=== PATIENT | male | born 1975 | race African-American/Black ===

== ENCOUNTER 2017-02-13 18:25 | Emergency (ER) | payer OTHER ==
[2017-02-13 15:36] VITALS: BP 115/73
[~2017-02-13 18:25] MED LIST changes: -ACETAMINOPHEN INTRAVENOUS 100 ML IV ONE; -BUPIVACAINE-EPI 0.25%-1:200000 50 ML VIAL. ONE; -CEFAZOLIN 2GM PREMIX 50 ML IV PRN; -DESFLURANE 61 TO 120 MINUTES IH ONE; -DEXAMETHASONE SOD PHOS 20 MG/5 ML VIAL. ONE; -ESMOLOL 100 MG/10 ML VIAL. IV ONE; -FENTANYL PF 100 MCG/2 ML VIAL. IV PRN; -FENTANYL PF 100 MCG/2 ML VIAL. ONE; -GLYCOPYRROLATE 1 MG/5 ML VIAL. ONE; -IV RINGERS,LACTATED 1000ML 1,000 ML IV SCH; -LIDOCAINE 1% 1 ML SYRINGE. ID PRN; -LIDOCAINE 2% 100 MG/5 ML SYRINGE. ONE; -MIDAZOLAM HCL/PF 2 MG/2 ML VIAL. ONE; -MORPHINE SULFATE 10 MG/ML VIAL. ONE; -MORPHINE SULFATE 2 MG/ML DISP.SYRIN. IV PRN; -NEOSTIGMINE METHYLSULFATE 5 MG/5 ML SYRINGE. ONE; -ONDANSETRON PF 4 MG/2 ML VIAL. IV PRN; -ONDANSETRON PF 4 MG/2 ML VIAL. ONE; -OXYCODONE/APAP 5/325 TABLET. PO PRN; -PROCHLORPERAZINE 10 MG/2 ML VIAL. IV PRN; -PROPOFOL 20 ML IV ONE; -ROCURONIUM 50 MG/5 ML VIAL. ONE
== END 2017-02-13 18:35 | disposition left against medical advice (07) ==
LOC: ER 18:25
DX: R33.9 Retention of urine, unspecified (principal); Z53.21 Procedure and treatment not carried out due to patient leaving prior to being seen by health care provider

== ENCOUNTER → 2017-02-13 | Day surgery (SDC) | payer OTHER ==
[~2017-02-13] VITALS: Ht 160 cm; Wt 70.8 kg
[~2017-02-13] MED LIST: ACETAMINOPHEN INTRAVENOUS 100 ML IV ONE; BUPIVACAINE-EPI 0.25%-1:200000 50 ML VIAL. ONE; CEFAZOLIN 2GM PREMIX 50 ML IV PRN; DESFLURANE 61 TO 120 MINUTES IH ONE; DEXAMETHASONE SOD PHOS 20 MG/5 ML VIAL. ONE; ESMOLOL 100 MG/10 ML VIAL. IV ONE; FENTANYL PF 100 MCG/2 ML VIAL. IV PRN; FENTANYL PF 100 MCG/2 ML VIAL. ONE; GLYCOPYRROLATE 1 MG/5 ML VIAL. ONE; IV RINGERS,LACTATED 1000ML 1,000 ML IV SCH; LIDOCAINE 1% 1 ML SYRINGE. ID PRN; LIDOCAINE 2% 100 MG/5 ML SYRINGE. ONE; MIDAZOLAM HCL/PF 2 MG/2 ML VIAL. ONE; MORPHINE SULFATE 10 MG/ML VIAL. ONE; MORPHINE SULFATE 2 MG/ML DISP.SYRIN. IV PRN; NEOSTIGMINE METHYLSULFATE 5 MG/5 ML SYRINGE. ONE; ONDANSETRON PF 4 MG/2 ML VIAL. IV PRN; ONDANSETRON PF 4 MG/2 ML VIAL. ONE; OXYC-323 PO; OXYCODONE/APAP 5/325 TABLET. PO PRN; PROCHLORPERAZINE 10 MG/2 ML VIAL. IV PRN; PROPOFOL 20 ML IV ONE; RISP37.5 IM; ROCURONIUM 50 MG/5 ML VIAL. ONE
--- NOTE | 2017-02-13 13:30 | PDOC ---
BRIEF OPERATIVE NOTE Date: Feb 13, 2017 Pre-Op Diagnosis Bilateral Inguinal Hernias Post-Op Diagnosis Same Procedure Performed Robotic assisted Bilateral Inguinal Hernia repair with Mesh Surgeon Same Anesthesia Type: General Blood Loss 10ml Specimens Obtained None Findings as above Complications None LUIS GANDARA MD Feb 13, 2017 13:30
--- NOTE | 2017-02-13 13:31 | DISCH ---
DISCHARGE INSTRUCTIONS Condition on Discharge Condition on Discharge: Stable Activity After Discharge Activity Instructions for Disc: Avoid exertion Other activity instructions: No lifting >20lbs for 2 weeks Diet after Discharge Diet after Discharge: Regular Wound Incision Care Other wound/incision instructi: May shower in 24 hours Contacting the after DC Call your doctor for: If your condition worsens Follow-Up Follow up with: Dr Gandara in 2 weeks LUIS GANDARA MD Feb 13, 2017 13:31
[2017-02-13] MEDS: FENTANYL PF 100 MCG/2 ML VIAL. IV PRN ×2 (14:06→14:32)
[2017-02-13] MEDS: HYDROMORPHONE 2 MG/ML VIAL. IV PRN ×2 (14:48→14:59)
[2017-02-13 15:36] VITALS: BP 115/73
--- NOTE | 2017-02-13 18:27 | OP ---
DATE OF SURGERY: 02/13/2017 PREOPERATIVE DIAGNOSIS: Bilateral inguinal hernia. POSTOPERATIVE DIAGNOSIS: Bilateral inguinal hernia. PROCEDURE: Robotic-assisted laparoscopic bilateral inguinal hernia repair with mesh. SURGEON: Alex Gandara MD. INDICATIONS: The patient is a 41-year-old gentleman who has complained of both groin bulges, more pain on the left than right. Procedure of robotic-assisted laparoscopic bilateral inguinal hernia repair was explained to the patient in detail. Risks and benefits were also discussed including bleeding, infection, injury to intra-abdominal contents, and possibly sustaining further open operations. Alternatives of this procedure were also discussed with the patient who seemed to understand and gave verbal and written consent to have the procedure performed. DESCRIPTION OF PROCEDURE: The patient was taken to the operating room and placed in the supine position. General anesthesia was initiated. Once the patient was asleep and intubated, he was then placed in low lithotomy. His abdomen was then prepped and draped in usual sterile fashion using ChloraPrep. An area just above the umbilicus was injected with 0.25% Marcaine with epinephrine. Incision was made with an 11-blade scalpel, and a Veress needle was placed within the abdomen. Pneumoperitoneum was achieved. Once this was completed, an 8.5-mm da Yamile port was placed. Once this was in place, 30-degree scope was placed, and the abdomen was inspected. It showed two inguinal hernias, one on the right and one on the left. He was placed in steep Trendelenburg. At this point, two 8-mm ports were then placed under direct visualization, one in the left mid abdomen and one in the right mid abdomen. At this point, the da Yamile robot was brought in and docked to all port sites. Surgeon then went to the robotic console. Using a grasper and EndoShears scissors, the peritoneum over the right groin was taken down with sharp dissection and blunt dissection reducing the hernia defect and the sac. At this point, a ProGrip mesh was then placed over the hernia defect. The peritoneum was then closed with a running V-Loc suture. Similarly, the left side peritoneum was taken down with sharp dissection. The hernia sac was dissected off the adherent tissues and reduced. Again, another piece of ProGrip mesh was placed over the hernia defect, and then the peritoneum was closed with a running V-Loc suture. The pneumoperitoneum was reduced. All ports were removed. The da Yamile robot was undocked. The incisions were closed with 4-0 subcuticular Monocryl. Mastisol, Steri-Strips, 4 x 4's, and Medipore tape were applied as dressings. The patient was awakened, extubated in the operating room, and taken to recovery in stable condition. All sponge and instrument counts were listed as correct. Estimated blood loss was 10 mL. ALEX GANDARA MD DR: GEOVANY/rosalia JOB#: [id number] / [id number] Dr. John Guillen
== END | disposition home or self-care (01) ==
LOC: SURG 09:37
PROVIDERS: ATTEND Surgery
DX: K40.20 Bilateral inguinal hernia, without obstruction or gangrene, not specified as recurrent (principal); F23 Brief psychotic disorder
CPT/HCPCS: 49650; C1781; J0131; J0690; J1100; J1170; J2250; J2270; J2405; J2704; J2710; J3010; J3490; J7120

== ENCOUNTER → 2021-03-22 | Outpatient (CLI) | payer MEDICAID ==
[~2021-03-22] MED LIST changes: -OXYC-323 PO; +OXYC1TAB15 PO
[2021-03-22] MEDS: IOHEXOL 240 MG/ML 50ML VIAL. PO ONE (08:00)
--- NOTE | 2021-03-22 09:17 | RAD ---
EXAM: Pelvis CT without contrast. HISTORY: Left inguinal hernia. TECHNIQUE: Computed tomographic images of the pelvis are obtained without contrast. *One or more of the following individualized dose reduction techniques were utilized for this examina tion: 1. Automated exposure control. 2. Adjustment of the mA and/or kV according to patient size. 3. Use of iterative reconstruction technique. COMPARISON: None. FINDINGS: There is a moderate to large fat-containing left inguinal hernia. The hernia defect measure s approximately 3.5 cm. There is stranding within the herniated fat and adjacent left lower quadrant fat suggesting a component of incarceration. There is also a small fat-containing right inguinal shawanda ia with the hernia defect measuring approximately 2.3 cm. There is no appendicitis. There is no bowel obstruction. There is distal colonic diverticulosis. Ther e is no diverticulitis. There are bilateral hydroceles. The bladder is unremarkable. The prostate is unremarkable. There is no lymphadenopathy. There is no suspicious osseous lesion. IMPRESSION: 1. Moderate to large fat-containing left inguinal hernia. There is stranding within the herniated fat and fat adjacent to the hernia defect suggesting a component of incarceration. No herniated loop of bowel is seen. 2. Small fat-containing right inguinal hernia. 3. Bilateral hydroceles. Electronically signed by: Maryse Li MD (03/22/2021 9:14 AM) [id number]
== END ==
LOC: CT 08:45
PROVIDERS: ATTEND Family Medicine
DX: K40.90 Unilateral inguinal hernia, without obstruction or gangrene, not specified as recurrent (principal); N43.3 Hydrocele, unspecified
CPT/HCPCS: 72192; Q9966

== ENCOUNTER 2021-05-03 08:28 | Day surgery (SDC) | payer OTHER, MEDICAID ==
[~2021-05-03] VITALS: Ht 162.6 cm; Wt 81.0 kg
[~2021-05-03 08:28] MED LIST changes: +BUPIVACAINE-EPI 0.25%-1:200000 MPF 30 ML VIAL. ONE; +CLON0.2T PO; +DOCU50CA9 PO; +HYDROmorphone 2 MG/ML VIAL IVP PRN; +IV RINGERS,LACTATED 1000ML 1,000 ML IV SCH; +LOSA100T14 PO; +MINERAL OIL for SURGERY 10 ML VIAL. MC ONE; +NAPR220C62 PO; +PROCHLORPERAZINE 10 MG/2 ML VIAL. IVP PRN; +fentaNYL PF VIAL 100 MCG/2 ML VIAL IVP PRN
[2021-05-03 08:59] VITALS: BP 144/94
[2021-05-03] MEDS ORDERED: ACETAMINOPHEN 500 MG TABLET PO ONE (09:00)
[2021-05-03] MEDS ORDERED: ROCURONIUM 50 MG/5 ML VIAL. ONE (09:05)
[2021-05-03] MEDS ORDERED: PROPOFOL 10 MG/ML (20ML) VIAL. IV ONE (09:05)
[2021-05-03] MEDS ORDERED: fentaNYL PF VIAL 100 MCG/2 ML VIAL ONE (09:06)
[2021-05-03] MEDS ORDERED: ONDANSETRON PF 4 MG/2 ML VIAL. ONE (09:06)
[2021-05-03] MEDS ORDERED: DEXAMETHASONE SOD PHOS 4 MG/ML VIAL ONE (09:06)
--- NOTE | 2021-05-03 11:27 | PDOC4 ---
Operative Note Operative Note Date: May 03, 2021 1123 Preoperative diagnosis: Recurrent left inguinal hernia Postoperative diagnosis: Same Procedure: Robotic assisted laparoscopic left inguinal hernia repair with mesh Surgeon: Andrew Specimen: None Dictation: Patient is a 45-year-old male who had bilateral inguinal hernia repairs several years ago is recurrent left inguinal hernia possible right. The procedure of recurrent inguinal hernia repairs with with mesh was explained to the patient detail risk benefits were also discussed including bleeding infection injury to intra-abdominal contents possible necessitating further open operations alternatives to this procedure also discussed with the patient who seemed to understand and gave both verbal and written consent to have the procedure performed. Patient was taken to the operating room placed in the s upine position general anesthesia was initiated once patient was sleeping intubated placed in low lithotomy position and his abdomen was prepped and draped usual sterile fashion using ChloraPrep. Area just above the umbilicus was injected with quarter percent Marcaine with epinephrine incision was made 11 blade scalpel and a varies needle was placed within the abdomen creating pneu moperitoneum once this was complete 8 mm da Yamile port was placed in the 8 mm da Yamile camera was placed within the abdomen which was inspected it was noted on the right side that the mesh was firmly intact there is no hernia defect. On the left side there was a large hernia defect lateral to the mesh which is a direct defect. 8 mm da Yamile port was placed in the right midabdomen and one in the left midabdomen the da Yamile was brought in and docked all port sites. Surgeon went to the robotic console using a grasper and Endo Cassandra scissors the peritoneum over the left inguinal area was taken down was quite difficult secondary to adhesions to the previous mesh and a very large hernia sac this was ultimately reduced. A Bard 3D max medium for the left side was placed over the hernia defect using 3-0 Vicryl several sutures were used to tack the mesh to the lip of the hernia defect as well as several single interrupted sutures along the superior border of the mesh to hold it in place. The peritoneum was then closed over the mesh with a running 2 OV lock absorbable suture. Once this was complete sutures removed from the abdomen the abdomen was suctioned dry of any fluid and blood. The da Yamile robot was undocked from all port sites pneumoperitoneum was reduced all ports were removed the port sites were all closed with running 4-0 subcuticular Monocryl Mastisol Steri-Strips and island dressings were applied. Patient was awakened and extubated operating room taken to recovery in stable condition all sponge instrument needle counts listed as correct estimated blood loss 20 mL. LUIS GANDARA MD May 03, 2021 11:27
[2021-05-03] MEDS ORDERED: OXYC1TAB15 PO (11:30)
--- NOTE | 2021-05-03 11:31 | DISCH ---
DISCHARGE INSTRUCTIONS Condition on Discharge Condition on Discharge: Stable Activity After Discharge Activity Instructions for Disc: Avoid exertion Other activity instructions: No lifting more than 20 pounds for 2 weeks Diet after Discharge Diet after Discharge: Regular Wound Incision Care Other wound/incision instructi: May shower in 24 hours Contacting the after DC Call your doctor for: If your condition worsens Follow-Up Follow up with: Dr. Gandara in 2 weeks LUIS GANDARA MD May 03, 2021 11:31
[2021-05-03] MEDS ORDERED: MORPHINE SULFATE 2 MG/ML INJ. ONE ×2 (11:57→12:22)
[2021-05-03] MEDS: MORPHINE SULFATE 2 MG/ML INJ. IVP PRN ×4 (11:59→12:45)
[2021-05-03] MEDS ORDERED: oxyCODONE/APAP 5/325 1 TAB TABLET PO ONE ×2 (12:00→12:30)
[2021-05-03 12:35] VITALS: BP 151/89
== END 2021-05-03 13:12 | disposition home or self-care (01) ==
LOC: SURG 08:28
PROVIDERS: ATTEND Surgery
DX: K40.91 Unilateral inguinal hernia, without obstruction or gangrene, recurrent (principal); I10 Essential (primary) hypertension; E78.00 Pure hypercholesterolemia, unspecified; Z79.899 Other long term (current) drug therapy; Z98.890 Other specified postprocedural states
CPT/HCPCS: 49651; A4364; A4930; A6219; C1781; J0690; J1100; J2270; J2405; J2704; J3010; J3490; S2900; A4657

== ENCOUNTER 2021-05-06 19:17 | Inpatient (IN) | payer OTHER, MEDICAID ==
[~2021-05-06] VITALS: Ht 162.6 cm; Wt 80.8 kg
[~2021-05-06 19:17] MED LIST changes: -BUPIVACAINE-EPI 0.25%-1:200000 MPF 30 ML VIAL. ONE; -HYDROmorphone 2 MG/ML VIAL IVP PRN; -IV RINGERS,LACTATED 1000ML 1,000 ML IV SCH; -MINERAL OIL for SURGERY 10 ML VIAL. MC ONE; -PROCHLORPERAZINE 10 MG/2 ML VIAL. IVP PRN; -fentaNYL PF VIAL 100 MCG/2 ML VIAL IVP PRN
--- NOTE | 2021-05-06 19:57 | ED.ADGEN ---
General Adult EDM: Chief Complaint: GROIN PAIN HPI: HPI: Patient is a 45 year old male coming in for postop increasing pain over the last 2 days. Patient states he had a inguinal mesh hernia repair 3 days ago. Patient states yesterday he had a hard bowel movement. Patient states his abdomen is been more distended and is having increasing pain. Also complaining of increased left testicular swelling since surgery. Patient has had a previous hernia repair in the past. Review of Systems: Review of Systems: All other systems within normal limits except for as noted in the HPI Current Medications: Current Medications Medications (Trade) Dose Ordered Sig/Toño Start Time Stop Time Status Last Admin Dose Admin Fentanyl Citrate (Fentanyl 2ml Vial) 75 mcg 1X ONCE 05/06/21 20:00 05/06/21 20:01 DC 05/06/21 20:50 75 MCG Info (CONTRAST GIVEN -- Rx MONITORING) 1 each PRN DAILY PRN 05/06/21 20:30 05/08/21 20:29 Iohexol (Omnipaque 300 Mg/ml) 75 ml 1X ONCE 05/06/21 20:30 05/06/21 20:31 DC 05/06/21 21:15 75 ML Ringer's Solution 1,000 ml @ 100 mls/hr 1X ONCE 05/06/21 20:30 05/07/21 06:29 05/06/21 20:52 100 MLS/HR Allergies: Allergies: Allergies Coded Allergies Type Severity Reaction Last Updated Verified No Known Drug Allergies 05/03/21 No Physical Exam: PE: Constitutional: Well developed, well nourished, no acute distress, non-toxic appearance. [] HENT: Normocephalic, atraumatic, bilateral external ears normal, nose normal. [] Eyes: PERRLA, conjunctiva normal, no discharge. [] Neck: No rigidity, supple, no stridor. [] Cardiovascular: Regular rate and rhythm, brisk cap refill [] Lungs & Thorax: Non labored symmetric respirations, no tachypnea or respiratory distress [] Abdomen: Soft, distended, generalized tenderness : Left testicular swelling and tenderness Skin: Warm, dry, no erythema, no rash. [] Back: Unremarkable Extremities: No deformities, range of motion grossly intact, no lower extremity edema [] Neurologic: Alert and oriented X 3, no focal deficits noted. [] Psychologic: Affect normal, judgement normal, mood normal. [] Current Patient Data: Labs: Laboratory Tests Test 05/06/21 19:20 05/06/21 20:41 Urine Collection Type Unknown Urine Color Straw Urine Clarity Clear Urine pH 7.0 (<5.0-8.0) Urine Specific Chandler <=1.005 (1.000-1.030) Urine Protein Negative mg/dL (NEG-TRACE) Urine Glucose (UA) Negative mg/dL (NEG) Urine Ketones (Stick) Negative mg/dL (NEG) Urine Blood Negative (NEG) Urine Nitrite Negative (NEG) Urine Bilirubin Negative (NEG) Urine Urobilinogen Dipstick 1.0 mg/dL (0.2 mg/dL) Urine Leukocyte Esterase Negative (NEG) Urine RBC 0 /HPF (0-2) Urine WBC 0 /HPF (0-4) Urine Squamous Epithelial Cells Occ /LPF Urine Bacteria 0 /HPF (0-FEW) White Blood Count 10.0 x10^3/uL (4.0-11.0) Red Blood Count 3.84 x10^6/uL (4.30-5.70) L Hemoglobin 11.5 g/dL (13.0-17.5) L Hematocrit 32.4 % (39.0-53.0) L Mean Corpuscular Volume 84 fL (79-100) Mean Corpuscular Hemoglobin 30 pg (25-35) Mean Corpuscular Hemoglobin Concent 36 g/dL (31-37) Red Cell Distribution Width 13.4 % (11.5-14.5) Platelet Count 145 x10^3/uL (140-400) Neutrophils (%) (Auto) 72 % (31-73) Lymphocytes (%) (Auto) 17 % (24-48) L Monocytes (%) (Auto) 11 % (0-9) H Eosinophils (%) (Auto) 0 % (0-3) Basophils (%) (Auto) 0 % (0-3) Neutrophils # (Auto) 7.2 x10^3/uL (1.8-7.7) Lymphocytes # (Auto) 1.7 x10^3/uL (1.0-4.8) Monocytes # (Auto) 1.1 x10^3/uL (0.0-1.1) Eosinophils # (Auto) 0.0 x10^3/uL (0.0-0.7) Basophils # (Auto) 0.0 x10^3/uL (0.0-0.2) Sodium Level 139 mmol/L (136-145) Potassium Level 3.9 mmol/L (3.5-5.1) Chloride Level 103 mmol/L (98-107) Carbon Dioxide Level 29 mmol/L (21-32) Anion Gap 7 (6-14) Blood Urea Nitrogen 11 mg/dL (8-26) Creatinine 1.1 mg/dL (0.7-1.3) Estimated GFR (Cockcroft-Gault) 87.2 BUN/Creatinine Ratio 10 (6-20) Glucose Level 119 mg/dL (70-99) H Lactic Acid Level 0.5 mmol/L (0.4-2.0) Calcium Level 9.1 mg/dL (8.5-10.1) Total Bilirubin 2.0 mg/dL (0.2-1.0) H Aspartate Amino Transferase (AST) 64 U/L (15-37) H Alanine Aminotransferase (ALT) 104 U/L (16-63) H Alkaline Phosphatase 142 U/L (46-116) H Total Protein 7.1 g/dL (6.4-8.2) Albumin 3.5 g/dL (3.4-5.0) Albumin/Globulin Ratio 1.0 (1.0-1.7) Laboratory Tests 05/06/21 20:41 Laboratory Tests 05/06/21 20:41 Vital Signs: Vital Signs Date Time Temp Pulse Resp B/P (MAP) Pulse Ox O2 Delivery O2 Flow Rate FiO2 05/06/21 20:50 26 98 Room Air 05/06/21 19:30 100.8 111 169/100 (109) 100.8 EKG: EKG: [] Heart Score: C/O Chest Pain: No Risk Factors: Risk Factors: DM, Current or recent (<one month) smoker, HTN, HLP, family history of CAD, obesity. Risk Scores: Score 0 - 3: 2.5% MACE over next 6 weeks - Discharge Home Score 4 - 6: 20.3% MACE over next 6 weeks - Admit for Clinical Observation Score 7 - 10: 72.7% MACE over next 6 weeks - Early Invasive Strategies Radiology/Procedures: Radiology/Procedures: [facility] [address] [place] [address] IMAGING REPORT Signed PATIENT: JESSICA JEFFERS ACCOUNT: [id number] : 1975 LOCATION: ER AGE: 45 SEX: M EXAM STATUS: REG ER ORD. PHYSICIAN: DEIDRE VEGA MD REASON: post op distention and testicle swelling, scan through testicles PROCEDURE: CT ABD PELV W/ IV CONTRST ONLY Exam: CT of abdomen and pelvis with contrast INDICATION: Postop distention and testicular swelling TECHNIQUE: Sequential axial images through the abdomen and pelvis obtained following the administration of 75 mL of Omni 300 IV contrast. Sagittal and coronal reformatted images were reconstructed from the axial data and reviewed. Exposure: One or more of the following in the visualized dose reduction techniques were utilized for this examination: 1. Automated exposure control 2. Adjustment of the MA and/or KV according to patient size 3. Use of iterative of reconstructive technique Comparisons: Pelvis CT 03/22/2021 FINDINGS: Heart size is normal. No pericardial effusion. Visualized lung bases are clear. No pleural effusion. Liver, spleen, pancreas, gallbladder and adrenals are unremarkable. No perinephric inflammation or hydronephrosis. No renal or ureteral calculi are identified. Bladder is decompressed not well evaluated. Prostate is not enlarged. Fluid and hemorrhagic products noted along the left pelvic sidewall extending into the left inguinal canal down into the scrotal sac with bilateral hydroceles. Previously seen large fat inguinal hernia is not seen. Small amount of free air is noted in the upper midline abdomen. Large and small bowel are unremarkable. Appendix is normal. No free intra-abdominal air or fluid. No obstruction. Abdominal aorta has a normal course and caliber. Abdominal vasculature is patent. No enlarged intra-abdominal lymph nodes are identified. IMPRESSION: 1. Hemorrhagic products seen extending from the left pelvic sidewall down to the inguinal canal into the scrotum with large bilateral hydroceles. 2. Small amount of free air is noted in the abdomen. Correlate with recency of surgery. Electronically signed by: Jayson De Dios MD (05/06/2021 9:56 PM) [facility] DICTATED and SIGNED BY: JAYSON DE DIOS MD DATE: 05/06/21 [id number] [] Course & Med Decision Making: Course & Med Decision Making Pertinent Labs and Imaging studies reviewed. (See chart for details) Discussed Dr. Coronado will admit to the hospitalist, requesting IV hydration, pain control, and abdominal binder. [] Dragon Disclaimer: Dragon Disclaimer: This electronic medical record was generated, in whole or in part, using a voice recognition dictation system. Departure Departure Impression: Primary Impression: Post-op bleeding Disposition: ADMITTED INPATIENT Admitting Physician: DOUG Condition: STABLE Referrals: Judy DOYLE MD (PCP) DEIDRE VEGA MD May 06, 2021 19:57
[2021-05-06] MEDS ORDERED: fentaNYL PF VIAL 100 MCG/2 ML VIAL IVP ONE (20:00)
[2021-05-06 20:01] LABS: BILIRUBIN,URINE NEGATIVE (NEG); CLARITY,URINE CLEAR; NITRITE,URINE NEGATIVE (NEG); PROTEIN,URINE NEGATIVE (NEG-TRACE)
[2021-05-06 20:08] LABS: COLOR,URINE STRAW
[2021-05-06 20:10] LABS: BACTERIA,URINE 0 /HPF (0-FEW); RBC,URINE 0 /HPF (0-2); WBC,URINE 0 /HPF (0-4)
[2021-05-06] MEDS ORDERED: IV RINGERS,LACTATED 1000ML 1,000 ML IV ONE (20:30)
[2021-05-06] MEDS ORDERED: CONTRAST GIVEN. MC PRN (20:30)
[2021-05-06] MEDS ORDERED: IOHEXOL 300 MG/ML 100ML VIAL. IV ONE (20:30)
[2021-05-06 20:53] LABS: BASO % 0 % (0-3); EOS % 0 % (0-3); HEMATOCRIT 32.4 % (39.0-53.0); HEMOGLOBIN 11.5 g/dL (13.0-17.5); LYMPH # 1.7 x10^3/uL (1.0-4.8); LYMPH % 17 % (24-48); MEAN CORPUSCULAR HEMOGLOBIN 30 pg (25-35); MEAN CORPUSCULAR HGB CONC 36 g/dL (31-37); MEAN CORPUSCULAR VOLUME 84 fL (79-100); MONO # 1.1 x10^3/uL (0.0-1.1); MONO % 11 % (0-9); NEUT # 7.2 x10^3/uL (1.8-7.7); NEUT % 72 % (31-73); PLATELET COUNT 145 x10^3/uL (140-400); RED BLOOD COUNT 3.84 x10^6/uL (4.30-5.70); RED CELL DISTRIBUTION WIDTH 13.4 % (11.5-14.5)
[2021-05-06 21:00] LABS: CALCIUM 9.1 mg/dL (8.5-10.1); CREATININE 1.1 mg/dL (0.7-1.3); GFR 87.2; POTASSIUM 3.9 mmol/L (3.5-5.1)
[2021-05-06 21:06] LABS: ALBUMIN 3.5 g/dL (3.4-5.0); TOTAL PROTEIN 7.1 g/dL (6.4-8.2)
--- NOTE | 2021-05-06 21:59 | RAD ---
Exam: CT of abdomen and pelvis with contrast INDICATION: Postop distention and testicular swelling TECHNIQUE: Sequential axial images through the abdomen and pelvis obtained following the administrati on of 75 mL of Omni 300 IV contrast. Sagittal and coronal reformatted images were reconstructed from the axial data and reviewed. Exposure: One or more of the following in the visualized dose reduction techniques were utilized for this examination: 1. Automated exposure control 2. Adjustment of the MA and/or KV according to patient size 3. Use of iterative of reconstructive technique Comparisons: Pelvis CT 03/22/2021 FINDINGS: Heart size is normal. No pericardial effusion. Visualized lung bases are clear. No pleural effusion. Liver, spleen, pancreas, gallbladder and adrenals are unremarkable. No perinephric inflammation or hydronephrosis. No renal or ureteral calculi are identified. Bladder is decompressed not well evaluated. Prostate is not enlarged. Fluid and hemorrhagic products noted along the left pelvic sidewall extending into the left inguinal canal down into the scrotal sac with bilateral hydroceles. Previously seen large fat inguinal hernia is not seen. Small amount of free air is noted in the upper midline abdomen. Large and small bowel are unremarkabl e. Appendix is normal. No free intra-abdominal air or fluid. No obstruction. Abdominal aorta has a normal course and caliber. Abdominal vasculature is patent. No enlarged intra-abdominal lymph nodes are identified. IMPRESSION: 1. Hemorrhagic products seen extending from the left pelvic sidewall down to the inguinal canal into the scrotum with large bilateral hydroceles. 2. Small amount of free air is noted in the abdomen. Correlate with recency of surgery. Electronically signed by: Jayson Newell MD (05/06/2021 9:56 PM) [facility]
[2021-05-06] MEDS ORDERED: ONDANSETRON PF 4 MG/2 ML VIAL. IV PRN (22:30)
[2021-05-06] MEDS ORDERED: MORPHINE SULFATE 4 MG/ML INJ. IV PRN (22:30)
[2021-05-06] MEDS: ACETAMINOPHEN 325 MG TABLET. PO PRN (23:16)
[2021-05-06 23:53] VITALS: BP 153/103
[2021-05-07] MEDS ORDERED: IOHEXOL 300 MG/ML 100ML VIAL. ONE (00:41)
[2021-05-07] MEDS ORDERED: CLON1PAT6 TD (00:53)
[2021-05-07 02:13] VITALS: BP 142/101
[2021-05-07 04:45] LABS: BASO % 0 % (0-3); EOS % 0 % (0-3); HEMATOCRIT 33.6 % (39.0-53.0); HEMOGLOBIN 11.8 g/dL (13.0-17.5); LYMPH # 2.3 x10^3/uL (1.0-4.8); LYMPH % 24 % (24-48); MEAN CORPUSCULAR HEMOGLOBIN 30 pg (25-35); MEAN CORPUSCULAR HGB CONC 35 g/dL (31-37); MEAN CORPUSCULAR VOLUME 85 fL (79-100); MONO # 1.1 x10^3/uL (0.0-1.1); MONO % 12 % (0-9); NEUT # 6.3 x10^3/uL (1.8-7.7); NEUT % 64 % (31-73); PLATELET COUNT 139 x10^3/uL (140-400); RED BLOOD COUNT 3.95 x10^6/uL (4.30-5.70); RED CELL DISTRIBUTION WIDTH 13.2 % (11.5-14.5); WHITE BLOOD COUNT 9.8 x10^3/uL (4.0-11.0)
[2021-05-07 05:12] LABS: ALBUMIN 3.4 g/dL (3.4-5.0); ALBUMIN/GLOBULIN RATIO 0.9 (1.0-1.7); CALCIUM 9.1 mg/dL (8.5-10.1); GFR 97.3; POTASSIUM 3.6 mmol/L (3.5-5.1); TOTAL PROTEIN 7.2 g/dL (6.4-8.2)
[2021-05-07 06:11] VITALS: BP 154/104
--- NOTE | 2021-05-07 08:44 | PDOC1 ---
History and Physical Date of Admission Date of Admission DATE: 05/07/21 TIME: 08:44 Identification/Chief Complaint Chief Complaint PAIN AFTER RECENT SURGERY History of Present Illness History of Present Illness HPI states his abdomen is been more distended and is having increasing pain.//complaining of increased left testicular swelling since surgery. Patient has had a previous hernia repair in the past. 45-year-old male who had bilateral inguinal hernia repairs several years ago is recurrent left inguinal hernia possible right suspect hematoma secondary extensive dissection, should be self limiting. encouraged elevation. Past Medical History Past Medical History hernia repair Family History Family History: High Cholestrol, Hypertension Social History Smoke: <1 pack per day Drugs: None Current Problem List Problem List Problems Medical Problems: (1) Post-op pain Status: Acute Current Medications Current Medications Current Medications Fentanyl Citrate (Fentanyl 2ml Vial) 75 mcg 1X ONCE IVP Last administered on 05/06/21at 20:50; Start 05/06/21 at 20:00; Stop 05/06/21 at 20:01; Status DC Ringer's Solution 1,000 ml @ 100 mls/hr 1X ONCE IV Last administered on 05/06/21at 20:52; Start 05/06/21 at 20:30; Stop 05/07/21 at 06:29; Status DC Iohexol (Omnipaque 300 Mg/ml) 75 ml 1X ONCE IV Last administered on 05/06/21at 21:15; Start 05/06/21 at 20:30; Stop 05/06/21 at 20:31; Status DC Info (CONTRAST GIVEN -- Rx MONITORING) 1 each PRN DAILY PRN MC SEE COMMENTS; Start 05/06/21 at 20:30; Stop 05/08/21 at 20:29 Ondansetron HCl (Zofran) 4 mg PRN Q8HRS PRN IV NAUSEA/VOMITING; Start 05/06/21 at 22:30; Stop 05/07/21 at 22:29 Morphine Sulfate (Morphine Sulfate) 4 mg PRN Q2HR PRN IV PAIN; Start 05/06/21 at 22:30; Stop 05/07/21 at 22:29 Acetaminophen (Tylenol) 650 mg PRN Q4HRS PRN PO FEVER > 100.3'F Last administered on 05/06/21at 23:16; Start 05/06/21 at 22:30; Stop 05/07/21 at 22:29 Iohexol (Omnipaque 300 Mg/ml) 100 ml STK-MED ONCE .ROUTE ; Start 05/07/21 at 00:41; Stop 05/07/21 at 00:42; Status DC Active Scripts Active Percocet 5-325 Mg Tablet (Oxycodone/Acetaminophen) 1 Each Tablet 1 Tab PO Q6HRS PRN MDD 4 Tablet(s) 5 Days Reported Clonidine Tts-2 (Clonidine) 1 Each Patch.tdwk 1 Patch TD WEEKLY Losartan Potassium 100 Mg Tablet 100 Mg PO DAILY Stool Softener (Docusate Sodium) 50 Mg Capsule 1 Cap PO PRN DAILY PRN Naproxen Sodium 220 Mg Capsule 220 Mg PO PRN BID PRN Risperdal Consta (Risperidone Microspheres) 37.5 Mg/2 Ml Disp.syrin 1 Syr IM UD Allergies Allergies: Coded Allergies: No Known Drug Allergies (Unverified , 05/03/21) ROS General: No: Chills, Night Sweats, Fatigue, Malaise, Appetite, Other PSYCHOLOGICAL ROS: No: Anxiety, Behavioral Disorder, Concentration difficultie, Decreased libido, Depression, Disorientation, Hallucinations, Hostility, Irritablity, Memory difficulties, Mood Swings, Obsessive thoughts, Physical abuse, Sexual abuse, Sleep disturbances, Suicidal ideation, Other Eyes: No Blurry vision, No Decreased vision, No Double vision, No Dry eyes, No Excessive tearing, No Eye Pain, No Itchy Eyes, No Loss of vision, No Photophobia, No Scotomata, No Uses contacts, No Uses glasses, No Other HEENT: No: Heacaches, Visual Changes, Hearing change, Nasal congestion, Nasal discharge, Oral lesions, Sinus pain, Sore Throat, Epistaxis, Sneezing, Snoring, Tinnitus, Vertigo, Vocal changes, Other ALLERGY AND IMMUNOLOGY: No: Hives, Insect Bite Sensitivity, Itchy/Watery Eyes, Nasal Congestion, Post Nasal Drip, Seasonal Allergies, Other Hematological and Lymphatic: No: Bleeding Problems, Blood Clots, Blood Transfusions, Brusing, Night Sweats, Pallor, Swollen Lymph Nodes, Other ENDOCRINE: No: Breast Changes, Galactorrhea, Hair Pattern Changes, Hot Flashes, Malaise/lethargy, Mood Swings, Palpitations, Polydipsia/polyuria, Skin Changes, Temperature Intolerance, Unexpected Weight Changes, Other Breast: No New/Changing Breast Lumps, No Nipple changes, No Nipple discharge, No Other Respiratory: No: Cough, Hemoptysis, Orthopnea, Pleuritic Pain, Shortness of breath, SOB with excertion, Sputum Changes, Stridor, Tachypnea, Wheezing, Other Cardiovascular: No Chest Pain, No Palpitations, No Orthopnea, No Paroxysmal Noc. Dyspnea, No Edema, No Lt Headedness, No Other Gastrointestinal: Yes Abdominal Pain; No Nausea, No Vomiting, No Diarrhea, No Constipation, No Melena, No Hematochezia, No Other Genitourinary: No Dysuria, No Frequency, No Incontinence, No Hematuria, No Retention, No Discharge, No Urgency, No Pain, No Flank Pain, No Other, No , No , No , No , No , No , No Musculoskeletal: Yes Gait Disturbance; No Joint Pain, No Joint Stiffness, No Joint Swelling, No Muscle Pain, No Muscular Weakness, No Pain In:, No Swelling In:, No Other Neurological: No Behavorial Changes, No Bowel/Bladder ControlChng, No Confusion, No Dizziness, No Gait Disturbance, No Headaches, No Impaired Coord/balance, No Memory Loss, No Numbness/Tingling, No Seizures, No Speech Problems, No Tremors, No Visual Changes, No Weakness, No Other Skin: Yes Dry Skin; No Eczema, No Hair Changes, No Lumps, No Mole Changes, No Mottling, No Nail Changes, No Pruritus, No Rash, No Skin Lesion Changes, No Other, No Acne Physical Exam Physical Exam : Left testicular swelling and tenderness Skin: Warm, dry, no erythema, no rash. [] Back: Unremarkable Extremities: No deformities, range of motion grossly intact, no lower extremity edema [] Neurologic: Alert and oriented X 3, no focal deficits noted. [] Psychologic: Affect normal, judgement normal, mood normal. [] General: Alert, Oriented X3, Cooperative, No acute distress HEENT: Atraumatic Lungs: Clear to auscultation Heart: RRR, no thrills, no rubs, no gallops, no jug vein distention Breasts: Not examined Abdomen: Normal bowel sounds, Soft Rectal Exam: not examined Extremities: No cyanosis Neuro: Normal speech, Strength at 5/5 X4 ext, Sensation intact, Cranial nerves 3-12 NL Psych/Mental Status: Mental status NL, Mood NL Vitals Vitals Vital Signs Date Time Temp Pulse Resp B/P (MAP) Pulse Ox O2 Delivery O2 Flow Rate FiO2 05/07/21 06:11 99.4 102 18 154/104 (121) 96 Room Air 99.4 Labs Labs Laboratory Tests Test 05/06/21 19:20 05/06/21 20:41 05/07/21 03:20 Urine Collection Type Unknown Urine Color Straw Urine Clarity Clear Urine pH 7.0 (<5.0-8.0) Urine Specific [place] <=1.005 (1.000-1.030) Urine Protein Negative mg/dL (NEG-TRACE) Urine Glucose (UA) Negative mg/dL (NEG) Urine Ketones (Stick) Negative mg/dL (NEG) Urine Blood Negative (NEG) Urine Nitrite Negative (NEG) Urine Bilirubin Negative (NEG) Urine Urobilinogen Dipstick 1.0 mg/dL (0.2 mg/dL) Urine Leukocyte Esterase Negative (NEG) Urine RBC 0 /HPF (0-2) Urine WBC 0 /HPF (0-4) Urine Squamous Epithelial Cells Occ /LPF Urine Bacteria 0 /HPF (0-FEW) White Blood Count 10.0 x10^3/uL (4.0-11.0) 9.8 x10^3/uL (4.0-11.0) Red Blood Count 3.84 x10^6/uL (4.30-5.70) 3.95 x10^6/uL (4.30-5.70) Hemoglobin 11.5 g/dL (13.0-17.5) 11.8 g/dL (13.0-17.5) Hematocrit 32.4 % (39.0-53.0) 33.6 % (39.0-53.0) Mean Corpuscular Volume 84 fL (79-100) 85 fL (79-100) Mean Corpuscular Hemoglobin 30 pg (25-35) 30 pg (25-35) Mean Corpuscular Hemoglobin Concent 36 g/dL (31-37) 35 g/dL (31-37) Red Cell Distribution Width 13.4 % (11.5-14.5) 13.2 % (11.5-14.5) Platelet Count 145 x10^3/uL (140-400) 139 x10^3/uL (140-400) Neutrophils (%) (Auto) 72 % (31-73) 64 % (31-73) Lymphocytes (%) (Auto) 17 % (24-48) 24 % (24-48) Monocytes (%) (Auto) 11 % (0-9) 12 % (0-9) Eosinophils (%) (Auto) 0 % (0-3) 0 % (0-3) Basophils (%) (Auto) 0 % (0-3) 0 % (0-3) Neutrophils # (Auto) 7.2 x10^3/uL (1.8-7.7) 6.3 x10^3/uL (1.8-7.7) Lymphocytes # (Auto) 1.7 x10^3/uL (1.0-4.8) 2.3 x10^3/uL (1.0-4.8) Monocytes # (Auto) 1.1 x10^3/uL (0.0-1.1) 1.1 x10^3/uL (0.0-1.1) Eosinophils # (Auto) 0.0 x10^3/uL (0.0-0.7) 0.0 x10^3/uL (0.0-0.7) Basophils # (Auto) 0.0 x10^3/uL (0.0-0.2) 0.0 x10^3/uL (0.0-0.2) Sodium Level 139 mmol/L (136-145) 141 mmol/L (136-145) Potassium Level 3.9 mmol/L (3.5-5.1) 3.6 mmol/L (3.5-5.1) Chloride Level 103 mmol/L (98-107) 104 mmol/L (98-107) Carbon Dioxide Level 29 mmol/L (21-32) 29 mmol/L (21-32) Anion Gap 7 (6-14) 8 (6-14) Blood Urea Nitrogen 11 mg/dL (8-26) 9 mg/dL (8-26) Creatinine 1.1 mg/dL (0.7-1.3) 1.0 mg/dL (0.7-1.3) Estimated GFR (Cockcroft-Gault) 87.2 97.3 BUN/Creatinine Ratio 10 (6-20) 9 (6-20) Glucose Level 119 mg/dL (70-99) 114 mg/dL (70-99) Lactic Acid Level 0.5 mmol/L (0.4-2.0) Calcium Level 9.1 mg/dL (8.5-10.1) 9.1 mg/dL (8.5-10.1) Total Bilirubin 2.0 mg/dL (0.2-1.0) 3.0 mg/dL (0.2-1.0) Aspartate Amino Transf (AST/SGOT) 64 U/L (15-37) 62 U/L (15-37) Alanine Aminotransferase (ALT/SGPT) 104 U/L (16-63) 108 U/L (16-63) Alkaline Phosphatase 142 U/L (46-116) 153 U/L (46-116) Total Protein 7.1 g/dL (6.4-8.2) 7.2 g/dL (6.4-8.2) Albumin 3.5 g/dL (3.4-5.0) 3.4 g/dL (3.4-5.0) Albumin/Globulin Ratio 1.0 (1.0-1.7) 0.9 (1.0-1.7) Laboratory Tests Test 05/06/21 19:20 05/06/21 20:41 05/07/21 03:20 Urine Collection Type Unknown Urine Color Straw Urine Clarity Clear Urine pH 7.0 (<5.0-8.0) Urine Specific [place] <=1.005 (1.000-1.030) Urine Protein Negative mg/dL (NEG-TRACE) Urine Glucose (UA) Negative mg/dL (NEG) Urine Ketones (Stick) Negative mg/dL (NEG) Urine Blood Negative (NEG) Urine Nitrite Negative (NEG) Urine Bilirubin Negative (NEG) Urine Urobilinogen Dipstick 1.0 mg/dL (0.2 mg/dL) Urine Leukocyte Esterase Negative (NEG) Urine RBC 0 /HPF (0-2) Urine WBC 0 /HPF (0-4) Urine Squamous Epithelial Cells Occ /LPF Urine Bacteria 0 /HPF (0-FEW) White Blood Count 10.0 x10^3/uL (4.0-11.0) 9.8 x10^3/uL (4.0-11.0) Red Blood Count 3.84 x10^6/uL (4.30-5.70) 3.95 x10^6/uL (4.30-5.70) Hemoglobin 11.5 g/dL (13.0-17.5) 11.8 g/dL (13.0-17.5) Hematocrit 32.4 % (39.0-53.0) 33.6 % (39.0-53.0) Mean Corpuscular Volume 84 fL (79-100) 85 fL (79-100) Mean Corpuscular Hemoglobin 30 pg (25-35) 30 pg (25-35) Mean Corpuscular Hemoglobin Concent 36 g/dL (31-37) 35 g/dL (31-37) Red Cell Distribution Width 13.4 % (11.5-14.5) 13.2 % (11.5-14.5) Platelet Count 145 x10^3/uL (140-400) 139 x10^3/uL (140-400) Neutrophils (%) (Auto) 72 % (31-73) 64 % (31-73) Lymphocytes (%) (Auto) 17 % (24-48) 24 % (24-48) Monocytes (%) (Auto) 11 % (0-9) 12 % (0-9) Eosinophils (%) (Auto) 0 % (0-3) 0 % (0-3) Basophils (%) (Auto) 0 % (0-3) 0 % (0-3) Neutrophils # (Auto) 7.2 x10^3/uL (1.8-7.7) 6.3 x10^3/uL (1.8-7.7) Lymphocytes # (Auto) 1.7 x10^3/uL (1.0-4.8) 2.3 x10^3/uL (1.0-4.8) Monocytes # (Auto) 1.1 x10^3/uL (0.0-1.1) 1.1 x10^3/uL (0.0-1.1) Eosinophils # (Auto) 0.0 x10^3/uL (0.0-0.7) 0.0 x10^3/uL (0.0-0.7) Basophils # (Auto) 0.0 x10^3/uL (0.0-0.2) 0.0 x10^3/uL (0.0-0.2) Sodium Level 139 mmol/L (136-145) 141 mmol/L (136-145) Potassium Level 3.9 mmol/L (3.5-5.1) 3.6 mmol/L (3.5-5.1) Chloride Level 103 mmol/L (98-107) 104 mmol/L (98-107) Carbon Dioxide Level 29 mmol/L (21-32) 29 mmol/L (21-32) Anion Gap 7 (6-14) 8 (6-14) Blood Urea Nitrogen 11 mg/dL (8-26) 9 mg/dL (8-26) Creatinine 1.1 mg/dL (0.7-1.3) 1.0 mg/dL (0.7-1.3) Estimated GFR (Cockcroft-Gault) 87.2 97.3 BUN/Creatinine Ratio 10 (6-20) 9 (6-20) Glucose Level 119 mg/dL (70-99) 114 mg/dL (70-99) Lactic Acid Level 0.5 mmol/L (0.4-2.0) Calcium Level 9.1 mg/dL (8.5-10.1) 9.1 mg/dL (8.5-10.1) Total Bilirubin 2.0 mg/dL (0.2-1.0) 3.0 mg/dL (0.2-1.0) Aspartate Amino Transf (AST/SGOT) 64 U/L (15-37) 62 U/L (15-37) Alanine Aminotransferase (ALT/SGPT) 104 U/L (16-63) 108 U/L (16-63) Alkaline Phosphatase 142 U/L (46-116) 153 U/L (46-116) Total Protein 7.1 g/dL (6.4-8.2) 7.2 g/dL (6.4-8.2) Albumin 3.5 g/dL (3.4-5.0) 3.4 g/dL (3.4-5.0) Albumin/Globulin Ratio 1.0 (1.0-1.7) 0.9 (1.0-1.7) Images Images BRIEF OPERATIVE NOTE Date: Feb 13, 2017 Pre-Op Diagnosis Bilateral Inguinal Hernias Post-Op Diagnosis Same Procedure Performed Robotic assisted Bilateral Inguinal Hernia repair with Mesh Surgeon Same Anesthesia Type: General Blood Loss 10ml Specimens Obtained None Findings as above Complications None Operative Note Operative Note Date: May 03, 2021 1123 Preoperative diagnosis: Recurrent left inguinal hernia Postoperative diagnosis: Same Procedure: Robotic assisted laparoscopic left inguinal hernia repair with mesh Surgeon: Andrew Specimen: None Dictation: Patient is a 45-year-old male who had bilateral inguinal hernia repairs several years ago is recurrent left inguinal hernia possible right. The procedure of recurrent inguinal hernia repairs with with mesh was explained to the patient detail risk benefits were also discussed including bleeding infection injury to intra-abdominal contents possible necessitating further open operations alternatives to this procedure also discussed with the patient who seemed to understand and gave both verbal and written consent to have the procedure performed. Patient was taken to the operating room placed in the supine position general anesthesia was initiated once patient was sleeping intubated placed in low lithotomy position and his abdomen was prepped and d raped usual sterile fashion using ChloraPrep. Area just above the umbilicus was injected with quarter percent Marcaine with epinephrine incision was made 11 blade scalpel and a varies needle was placed within the abdomen creating pneumoperitoneum once this was complete 8 mm da Yamile port was placed in the 8 mm da Yamile camera was placed within the abdomen which was inspected it was noted on the right side that the mesh was firmly intact there is no hernia defect. On the left side there was a large hernia defect lateral to the mesh which is a direct defect. 8 mm da Yamile port was placed in the right midabdomen and one in the left midabdomen the da Yamile was brought in and docked all port sites. Surgeon went to the robotic console using a grasper and Endo Cassandra scissors the peritoneum over the left inguinal area was taken down was quite difficult secondary to adhesions to the previous mesh and a very large hernia sac this was ultimately reduced. A Bard 3D max medium for the left side was placed over the hernia defect using 3-0 Vicryl several sutures were used to tack the mesh to the lip of the hernia defect as well as several single interrupted sutures along the superior border of the mesh to hold it in place. The peritoneum was then closed over the mesh with a running 2 OV lock absorbable suture. Once this was complete sutures removed from the abdomen the abdomen was suctioned dry of any fluid and blood. The da Yamile robot was undocked from all port sites pneumoperitoneum was reduced all ports were removed the port sites were all closed with running 4-0 subcuticular Monocryl Mastisol Steri-Strips and island dressings were applied. Patient was awakened and extubated operating room taken to recovery in stable condition all sponge instrument needle counts listed as correct estimated blood loss 20 mL. LUIS GANDARA MD May 03, 2021 11:27 SIGNED BY: LUIS GANDARA MD PATIENT: GEORGINA JEFFERSCT N ACCOUNT: [id number] : 1975 LOCATION: ER AGE: 45 SEX: M EXAM STATUS: REG ER ORD. PHYSICIAN: DEIDRE VEGA MD REASON: post op distention and testicle swelling, scan through testicles PROCEDURE: CT ABD PELV W/ IV CONTRST ONLY Exam: CT of abdomen and pelvis with contrast INDICATION: Postop distention and testicular swelling TECHNIQUE: Sequential axial images through the abdomen and pelvis obtained following the administration of 75 mL of Omni 300 IV contrast. Sagittal and coronal reformatted images were reconstructed from the axial data and reviewed. Exposure: One or more of the following in the visualized dose reduction techniques were utilized for this examination: 1. Automated exposure control 2. Adjustment of the MA and/or KV according to patient size 3. Use of iterative of reconstructive technique Comparisons: Pelvis CT 03/22/2021 FINDINGS: Heart size is normal. No pericardial effusion. Visualized lung bases are clear. No pleural effusion. Liver, spleen, pancreas, gallbladder and adrenals are unremarkable. No perinephric inflammation or hydronephrosis. No renal or ureteral calculi are identified. Bladder is decompressed not well evaluated. Prostate is not enlarged. Fluid and hemorrhagic products noted along the left pelvic sidewall extending into the left inguinal canal down into the scrotal sac with bilateral hydroceles. Previously seen large fat inguinal hernia is not seen. Small amount of free air is noted in the upper midline abdomen. Large and small bowel are unremarkable. Appendix is normal. No free intra-abdominal air or fluid. No obstruction. Abdominal aorta has a normal course and caliber. Abdominal vasculature is patent. No enlarged intra-abdominal lymph nodes are identified. IMPRESSION: 1. Hemorrhagic products seen extending from the left pelvic sidewall down to the inguinal canal into the scrotum with large bilateral hydroceles. 2. Small amount of free air is noted in the abdomen. Correlate with recency of surgery. Electronically signed by: Jayson De Dios MD (05/06/2021 9:56 PM) [facility] DICTATED and SIGNED BY: JAYSON DE DIOS MD DATE: 05/06/21 [id number] VTE Prophylaxis Ordered VTE Prophylaxis Devices: Contraindicated VTE Pharmacological Prophylaxi: Contraindicated Assessment/Plan Assessment/Plan Assessment/Plan POD # 3 Robotic assisted laparoscopic left inguinal hernia repair with mesh seroma, hematoma--expected obesity ADMIT Consult surgery heat, elevation pain control dvt prophylaxis, SCD'D NO LOVENOX home meds COLACE Justifications for Admission Other Justification LUIS MARTIN MD May 07, 2021 08:44
[2021-05-07 11:18] VITALS: BP 149/99
--- NOTE | 2021-05-07 12:38 | PDOC2 ---
FELIPE ARELLANO CODING COORDINATOR 05/07/21 1238: CONSULT Date of Consult Date of Consult DATE: 05/07/21 TIME: 12:33 Reason for Consult Reason for Consult: recent surgery Referring Physician Referring Physician: ER Identification/Chief Complaint Chief Complaint pain, swelling groin Source Source: Chart review, Patient History of Present Illness Reason for Visit: 05/03 underwent Robotic assisted laparoscopic left inguinal hernia repair with mesh--increasing swelling and pain to groin, testicle Family present concerned, this is second repair, why having troubles Past Medical History Cardiovascular: HTN, Hyperlipidemia Psych: Schizophrenia Past Surgical History Past Surgical History: Hernia Repair Family History Family History: Other (noncontributory to current illness ) Social History No ALCOHOL: none Drugs: None Lives: with Family Current Problem List Problem List Problems Medical Problems: (1) Post-op pain Status: Acute Current Medications Current Medications Current Medications Fentanyl Citrate (Fentanyl 2ml Vial) 75 mcg 1X ONCE IVP Last administered on 05/06/21at 20:50; Start 05/06/21 at 20:00; Stop 05/06/21 at 20:01; Status DC Ringer's Solution 1,000 ml @ 100 mls/hr 1X ONCE IV Last administered on 05/06/21at 20:52; Start 05/06/21 at 20:30; Stop 05/07/21 at 06:29; Status DC Iohexol (Omnipaque 300 Mg/ml) 75 ml 1X ONCE IV Last administered on 05/06/21at 21:15; Start 05/06/21 at 20:30; Stop 05/06/21 at 20:31; Status DC Info (CONTRAST GIVEN -- Rx MONITORING) 1 each PRN DAILY PRN MC SEE COMMENTS; Start 05/06/21 at 20:30; Stop 05/08/21 at 20:29 Ondansetron HCl (Zofran) 4 mg PRN Q8HRS PRN IV NAUSEA/VOMITING; Start 05/06/21 at 22:30; Stop 05/07/21 at 22:29 Morphine Sulfate (Morphine Sulfate) 4 mg PRN Q2HR PRN IV PAIN; Start 05/06/21 at 22:30; Stop 05/07/21 at 22:29 Acetaminophen (Tylenol) 650 mg PRN Q4HRS PRN PO FEVER > 100.3'F Last administered on 05/06/21at 23:16; Start 05/06/21 at 22:30; Stop 05/07/21 at 22:29 Iohexol (Omnipaque 300 Mg/ml) 100 ml STK-MED ONCE .ROUTE ; Start 05/07/21 at 00:41; Stop 05/07/21 at 00:42; Status DC Active Scripts Active Percocet 5-325 Mg Tablet (Oxycodone/Acetaminophen) 1 Each Tablet 1 Tab PO Q6HRS PRN MDD 4 Tablet(s) 5 Days Reported Clonidine Tts-2 (Clonidine) 1 Each Patch.tdwk 1 Patch TD WEEKLY Losartan Potassium 100 Mg Tablet 100 Mg PO DAILY Stool Softener (Docusate Sodium) 50 Mg Capsule 1 Cap PO PRN DAILY PRN Naproxen Sodium 220 Mg Capsule 220 Mg PO PRN BID PRN Risperdal Consta (Risperidone Microspheres) 37.5 Mg/2 Ml Disp.syrin 1 Syr IM UD Allergies Allergies: Coded Allergies: No Known Drug Allergies (Unverified , 05/03/21) ROS General: YES: Fatigue; No: Chills PSYCHOLOGICAL ROS: No: Anxiety, Depression Eyes: No Blurry vision, No Double vision HEENT: No: Heacaches, Sore Throat Hematological and Lymphatic: No: Bleeding Problems, Blood Clots Respiratory: No: Cough, Shortness of breath Cardiovascular: No Chest Pain, No Palpitations Gastrointestinal: Yes Other (see hpi) Genitourinary: No Dysuria, No Hematuria Musculoskeletal: No Joint Pain, No Muscle Pain Neurological: No Impaired Coord/balance, No Numbness/Tingling Skin: No Pruritus, No Rash Physical Exam General: Alert, Oriented X3, Cooperative HEENT: Atraumatic, PERRLA Lungs: Clear to auscultation, Normal air movement Heart: Regular rate, Normal S1, Normal S2 Abdomen: Soft, Other (mildly distended ) Extremities: No clubbing, No cyanosis Skin: No rashes, No breakdown Neuro: Normal gait, Normal speech Psych/Mental Status: Mental status NL, Mood NL MUSCULOSKELETAL: No deformity, No swelling Vitals VITALS Vital Signs Date Time Temp Pulse Resp B/P (MAP) Pulse Ox O2 Delivery O2 Flow Rate FiO2 05/07/21 11:18 99.7 104 18 149/99 (116) 96 Room Air 99.7 Labs Labs Laboratory Tests Test 05/06/21 19:20 05/06/21 20:41 05/07/21 03:20 Urine Collection Type Unknown Urine Color Straw Urine Clarity Clear Urine pH 7.0 (<5.0-8.0) Urine Specific [place] <=1.005 (1.000-1.030) Urine Protein Negative mg/dL (NEG-TRACE) Urine Glucose (UA) Negative mg/dL (NEG) Urine Ketones (Stick) Negative mg/dL (NEG) Urine Blood Negative (NEG) Urine Nitrite Negative (NEG) Urine Bilirubin Negative (NEG) Urine Urobilinogen Dipstick 1.0 mg/dL (0.2 mg/dL) Urine Leukocyte Esterase Negative (NEG) Urine RBC 0 /HPF (0-2) Urine WBC 0 /HPF (0-4) Urine Squamous Epithelial Cells Occ /LPF Urine Bacteria 0 /HPF (0-FEW) White Blood Count 10.0 x10^3/uL (4.0-11.0) 9.8 x10^3/uL (4.0-11.0) Red Blood Count 3.84 x10^6/uL (4.30-5.70) 3.95 x10^6/uL (4.30-5.70) Hemoglobin 11.5 g/dL (13.0-17.5) 11.8 g/dL (13.0-17.5) Hematocrit 32.4 % (39.0-53.0) 33.6 % (39.0-53.0) Mean Corpuscular Volume 84 fL (79-100) 85 fL (79-100) Mean Corpuscular Hemoglobin 30 pg (25-35) 30 pg (25-35) Mean Corpuscular Hemoglobin Concent 36 g/dL (31-37) 35 g/dL (31-37) Red Cell Distribution Width 13.4 % (11.5-14.5) 13.2 % (11.5-14.5) Platelet Count 145 x10^3/uL (140-400) 139 x10^3/uL (140-400) Neutrophils (%) (Auto) 72 % (31-73) 64 % (31-73) Lymphocytes (%) (Auto) 17 % (24-48) 24 % (24-48) Monocytes (%) (Auto) 11 % (0-9) 12 % (0-9) Eosinophils (%) (Auto) 0 % (0-3) 0 % (0-3) Basophils (%) (Auto) 0 % (0-3) 0 % (0-3) Neutrophils # (Auto) 7.2 x10^3/uL (1.8-7.7) 6.3 x10^3/uL (1.8-7.7) Lymphocytes # (Auto) 1.7 x10^3/uL (1.0-4.8) 2.3 x10^3/uL (1.0-4.8) Monocytes # (Auto) 1.1 x10^3/uL (0.0-1.1) 1.1 x10^3/uL (0.0-1.1) Eosinophils # (Auto) 0.0 x10^3/uL (0.0-0.7) 0.0 x10^3/uL (0.0-0.7) Basophils # (Auto) 0.0 x10^3/uL (0.0-0.2) 0.0 x10^3/uL (0.0-0.2) Sodium Level 139 mmol/L (136-145) 141 mmol/L (136-145) Potassium Level 3.9 mmol/L (3.5-5.1) 3.6 mmol/L (3.5-5.1) Chloride Level 103 mmol/L (98-107) 104 mmol/L (98-107) Carbon Dioxide Level 29 mmol/L (21-32) 29 mmol/L (21-32) Anion Gap 7 (6-14) 8 (6-14) Blood Urea Nitrogen 11 mg/dL (8-26) 9 mg/dL (8-26) Creatinine 1.1 mg/dL (0.7-1.3) 1.0 mg/dL (0.7-1.3) Estimated GFR (Cockcroft-Gault) 87.2 97.3 BUN/Creatinine Ratio 10 (6-20) 9 (6-20) Glucose Level 119 mg/dL (70-99) 114 mg/dL (70-99) Lactic Acid Level 0.5 mmol/L (0.4-2.0) Calcium Level 9.1 mg/dL (8.5-10.1) 9.1 mg/dL (8.5-10.1) Total Bilirubin 2.0 mg/dL (0.2-1.0) 3.0 mg/dL (0.2-1.0) Aspartate Amino Transf (AST/SGOT) 64 U/L (15-37) 62 U/L (15-37) Alanine Aminotransferase (ALT/SGPT) 104 U/L (16-63) 108 U/L (16-63) Alkaline Phosphatase 142 U/L (46-116) 153 U/L (46-116) Total Protein 7.1 g/dL (6.4-8.2) 7.2 g/dL (6.4-8.2) Albumin 3.5 g/dL (3.4-5.0) 3.4 g/dL (3.4-5.0) Albumin/Globulin Ratio 1.0 (1.0-1.7) 0.9 (1.0-1.7) Laboratory Tests Test 05/06/21 19:20 05/06/21 20:41 05/07/21 03:20 Urine Collection Type Unknown Urine Color Straw Urine Clarity Clear Urine pH 7.0 (<5.0-8.0) Urine Specific [place] <=1.005 (1.000-1.030) Urine Protein Negative mg/dL (NEG-TRACE) Urine Glucose (UA) Negative mg/dL (NEG) Urine Ketones (Stick) Negative mg/dL (NEG) Urine Blood Negative (NEG) Urine Nitrite Negative (NEG) Urine Bilirubin Negative (NEG) Urine Urobilinogen Dipstick 1.0 mg/dL (0.2 mg/dL) Urine Leukocyte Esterase Negative (NEG) Urine RBC 0 /HPF (0-2) Urine WBC 0 /HPF (0-4) Urine Squamous Epithelial Cells Occ /LPF Urine Bacteria 0 /HPF (0-FEW) White Blood Count 10.0 x10^3/uL (4.0-11.0) 9.8 x10^3/uL (4.0-11.0) Red Blood Count 3.84 x10^6/uL (4.30-5.70) 3.95 x10^6/uL (4.30-5.70) Hemoglobin 11.5 g/dL (13.0-17.5) 11.8 g/dL (13.0-17.5) Hematocrit 32.4 % (39.0-53.0) 33.6 % (39.0-53.0) Mean Corpuscular Volume 84 fL (79-100) 85 fL (79-100) Mean Corpuscular Hemoglobin 30 pg (25-35) 30 pg (25-35) Mean Corpuscular Hemoglobin Concent 36 g/dL (31-37) 35 g/dL (31-37) Red Cell Distribution Width 13.4 % (11.5-14.5) 13.2 % (11.5-14.5) Platelet Count 145 x10^3/uL (140-400) 139 x10^3/uL (140-400) Neutrophils (%) (Auto) 72 % (31-73) 64 % (31-73) Lymphocytes (%) (Auto) 17 % (24-48) 24 % (24-48) Monocytes (%) (Auto) 11 % (0-9) 12 % (0-9) Eosinophils (%) (Auto) 0 % (0-3) 0 % (0-3) Basophils (%) (Auto) 0 % (0-3) 0 % (0-3) Neutrophils # (Auto) 7.2 x10^3/uL (1.8-7.7) 6.3 x10^3/uL (1.8-7.7) Lymphocytes # (Auto) 1.7 x10^3/uL (1.0-4.8) 2.3 x10^3/uL (1.0-4.8) Monocytes # (Auto) 1.1 x10^3/uL (0.0-1.1) 1.1 x10^3/uL (0.0-1.1) Eosinophils # (Auto) 0.0 x10^3/uL (0.0-0.7) 0.0 x10^3/uL (0.0-0.7) Basophils # (Auto) 0.0 x10^3/uL (0.0-0.2) 0.0 x10^3/uL (0.0-0.2) Sodium Level 139 mmol/L (136-145) 141 mmol/L (136-145) Potassium Level 3.9 mmol/L (3.5-5.1) 3.6 mmol/L (3.5-5.1) Chloride Level 103 mmol/L (98-107) 104 mmol/L (98-107) Carbon Dioxide Level 29 mmol/L (21-32) 29 mmol/L (21-32) Anion Gap 7 (6-14) 8 (6-14) Blood Urea Nitrogen 11 mg/dL (8-26) 9 mg/dL (8-26) Creatinine 1.1 mg/dL (0.7-1.3) 1.0 mg/dL (0.7-1.3) Estimated GFR (Cockcroft-Gault) 87.2 97.3 BUN/Creatinine Ratio 10 (6-20) 9 (6-20) Glucose Level 119 mg/dL (70-99) 114 mg/dL (70-99) Lactic Acid Level 0.5 mmol/L (0.4-2.0) Calcium Level 9.1 mg/dL (8.5-10.1) 9.1 mg/dL (8.5-10.1) Total Bilirubin 2.0 mg/dL (0.2-1.0) 3.0 mg/dL (0.2-1.0) Aspartate Amino Transf (AST/SGOT) 64 U/L (15-37) 62 U/L (15-37) Alanine Aminotransferase (ALT/SGPT) 104 U/L (16-63) 108 U/L (16-63) Alkaline Phosphatase 142 U/L (46-116) 153 U/L (46-116) Total Protein 7.1 g/dL (6.4-8.2) 7.2 g/dL (6.4-8.2) Albumin 3.5 g/dL (3.4-5.0) 3.4 g/dL (3.4-5.0) Albumin/Globulin Ratio 1.0 (1.0-1.7) 0.9 (1.0-1.7) Assessment/Plan Assessment/Plan seroma, hematoma--niru Morales--expected heat, elevation JUAN PABLO JACOBS MD 05/07/21 1322: CONSULT Assessment/Plan Assessment/Plan Pt seen and examined. Agree with Ms. Arellano's note Pt feels somewhat better, ready to eat abd soft, incisions intact, enlargement of left scrotum d/w pt and pt's father, suspect hematoma secondary extensive dissection, should be self limiting. encouraged elevation. Thanks for consult! FELIPE ARELLANO APRN May 07, 2021 12:38 JUAN PABLO JACOBS MD May 07, 2021 13:22
--- NOTE | 2021-05-07 13:34 | NUR ---
SS following for discharge planning. SS reviewed pt chart and discussed with pt RN. Pt is from home and is currently on room air. Surgery consulted. Discharge plan is currently to home when medically ready. SS will continue to follow for discharge planning.
[2021-05-07 15:05] VITALS: BP 149/93
[2021-05-07] MEDS ORDERED: DOCUSATE SODIUM 100 MG CAPSULE. PO PRN ×2 (17:30→18:15)
[2021-05-07] MEDS ORDERED: cloNIDine TTS-2 1 PATCH PATCH TD SCH (17:30)
[2021-05-07] MEDS ORDERED: NAPROXEN 250 MG TABLET PO PRN (17:30)
[2021-05-07] MEDS ORDERED: MAG HYDROX/ALUMINUM HYD/SIMETH 30 ML ORAL.SUSP PO PRN (18:15)
[2021-05-07] MEDS ORDERED: ALBUTEROL SULFATE 2.5 MG/3 ML NEBU. NEB PRN (18:15)
[2021-05-07] MEDS ORDERED: guaiFENesin ORAL 200 MG/10 ML LIQUID. PO PRN (18:15)
[2021-05-07] MEDS ORDERED: LORazepam 0.5 MG TABLET PO PRN (18:15)
[2021-05-07] MEDS ORDERED: 0.9 % SODIUM CHLORIDE 10 ML DISP.SYRIN. IV PRN (18:15)
[2021-05-07 19:31] VITALS: BP 144/97
[2021-05-07] MEDS: ACETAMINOPHEN 325 MG TABLET. PO PRN (19:38)
[2021-05-07] MEDS ORDERED: PIP/TAZO PER PHARMACY MC PRN (20:00)
[2021-05-07] MEDS ORDERED: PIPERACILLIN/TAZOBACTAM 3.375 GM in IV NORMAL SALINE 50ML 50 ML IV SCH (21:00)
[2021-05-07 22:57] VITALS: BP 133/90
[2021-05-07] MEDS: PIPERACILLIN/TAZOBACTAM 3.375 GM in IV NORMAL SALINE 50ML 50 ML IV SCH (23:50)
[2021-05-08 03:00] VITALS: BP 149/97
[2021-05-08] MEDS: PIPERACILLIN/TAZOBACTAM 3.375 GM in IV NORMAL SALINE 50ML 50 ML IV SCH ×4 (06:00→23:29)
[2021-05-08 07:18] VITALS: BP 168/91
[2021-05-08] MEDS: LOSARTAN POTASSIUM 50 MG TABLET. PO SCH (08:37)
--- NOTE | 2021-05-08 09:12 | PDOC ---
FELIPE ARELLANO EMERGENCY DISPATCH OPERATOR 05/08/21 0912: SURGICAL PROGRESS NOTE DATE: 05/08/21 TIME: 09:05 Subjective eating stooling when lying no pain when up has groin pain Vital Signs Vital Signs Date Time Temp Pulse Resp B/P (MAP) Pulse Ox O2 Delivery O2 Flow Rate FiO2 05/08/21 08:37 105 168/91 05/08/21 07:18 99.2 18 95 Room Air 99.2 I&O Intake and Output 05/08/21 07:00 Intake Total 500 ml Output Total 575 ml Balance -75 ml Intake Oral 500 ml Output Urine Total 575 ml # Voids 1 General: Alert, Oriented X3, Cooperative Abdomen: Soft Skin: Other (scrotal swelling) Labs Laboratory Tests Test 05/06/21 19:20 05/06/21 20:41 05/07/21 03:20 Urine Collection Type Unknown Urine Color Straw Urine Clarity Clear Urine pH 7.0 (<5.0-8.0) Urine Specific [place] <=1.005 (1.000-1.030) Urine Protein Negative mg/dL (NEG-TRACE) Urine Glucose (UA) Negative mg/dL (NEG) Urine Ketones (Stick) Negative mg/dL (NEG) Urine Blood Negative (NEG) Urine Nitrite Negative (NEG) Urine Bilirubin Negative (NEG) Urine Urobilinogen Dipstick 1.0 mg/dL (0.2 mg/dL) Urine Leukocyte Esterase Negative (NEG) Urine RBC 0 /HPF (0-2) Urine WBC 0 /HPF (0-4) Urine Squamous Epithelial Cells Occ /LPF Urine Bacteria 0 /HPF (0-FEW) White Blood Count 10.0 x10^3/uL (4.0-11.0) 9.8 x10^3/uL (4.0-11.0) Red Blood Count 3.84 x10^6/uL (4.30-5.70) 3.95 x10^6/uL (4.30-5.70) Hemoglobin 11.5 g/dL (13.0-17.5) 11.8 g/dL (13.0-17.5) Hematocrit 32.4 % (39.0-53.0) 33.6 % (39.0-53.0) Mean Corpuscular Volume 84 fL (79-100) 85 fL (79-100) Mean Corpuscular Hemoglobin 30 pg (25-35) 30 pg (25-35) Mean Corpuscular Hemoglobin Concent 36 g/dL (31-37) 35 g/dL (31-37) Red Cell Distribution Width 13.4 % (11.5-14.5) 13.2 % (11.5-14.5) Platelet Count 145 x10^3/uL (140-400) 139 x10^3/uL (140-400) Neutrophils (%) (Auto) 72 % (31-73) 64 % (31-73) Lymphocytes (%) (Auto) 17 % (24-48) 24 % (24-48) Monocytes (%) (Auto) 11 % (0-9) 12 % (0-9) Eosinophils (%) (Auto) 0 % (0-3) 0 % (0-3) Basophils (%) (Auto) 0 % (0-3) 0 % (0-3) Neutrophils # (Auto) 7.2 x10^3/uL (1.8-7.7) 6.3 x10^3/uL (1.8-7.7) Lymphocytes # (Auto) 1.7 x10^3/uL (1.0-4.8) 2.3 x10^3/uL (1.0-4.8) Monocytes # (Auto) 1.1 x10^3/uL (0.0-1.1) 1.1 x10^3/uL (0.0-1.1) Eosinophils # (Auto) 0.0 x10^3/uL (0.0-0.7) 0.0 x10^3/uL (0.0-0.7) Basophils # (Auto) 0.0 x10^3/uL (0.0-0.2) 0.0 x10^3/uL (0.0-0.2) Sodium Level 139 mmol/L (136-145) 141 mmol/L (136-145) Potassium Level 3.9 mmol/L (3.5-5.1) 3.6 mmol/L (3.5-5.1) Chloride Level 103 mmol/L (98-107) 104 mmol/L (98-107) Carbon Dioxide Level 29 mmol/L (21-32) 29 mmol/L (21-32) Anion Gap 7 (6-14) 8 (6-14) Blood Urea Nitrogen 11 mg/dL (8-26) 9 mg/dL (8-26) Creatinine 1.1 mg/dL (0.7-1.3) 1.0 mg/dL (0.7-1.3) Estimated GFR (Cockcroft-Gault) 87.2 97.3 BUN/Creatinine Ratio 10 (6-20) 9 (6-20) Glucose Level 119 mg/dL (70-99) 114 mg/dL (70-99) Lactic Acid Level 0.5 mmol/L (0.4-2.0) Calcium Level 9.1 mg/dL (8.5-10.1) 9.1 mg/dL (8.5-10.1) Total Bilirubin 2.0 mg/dL (0.2-1.0) 3.0 mg/dL (0.2-1.0) Aspartate Amino Transf (AST/SGOT) 64 U/L (15-37) 62 U/L (15-37) Alanine Aminotransferase (ALT/SGPT) 104 U/L (16-63) 108 U/L (16-63) Alkaline Phosphatase 142 U/L (46-116) 153 U/L (46-116) Total Protein 7.1 g/dL (6.4-8.2) 7.2 g/dL (6.4-8.2) Albumin 3.5 g/dL (3.4-5.0) 3.4 g/dL (3.4-5.0) Albumin/Globulin Ratio 1.0 (1.0-1.7) 0.9 (1.0-1.7) Problem List Problems Medical Problems: (1) Post-op pain Status: Acute Assessment/Plan fevers, tachy, blood cultures negative--consider covid testing, possible ID consult--recheck labs--d/w IPC exam stable will review with Dr Gandara Justicifation of Admission Dx: Justifications for Admission: Justification of Admission Dx: Yes Comments: LUIS Beyer MD 05/08/21 8700: SURGICAL PROGRESS NOTE Assessment/Plan Scrotal hematoma appears to be improving minimal pain. Of concern is elevated bilirubin and LFTs unlikely related to surgery would recommend GI consult. FELIPE ARELLANO APRN 13, 2021 09:12 LUIS GANDARA MD May 08, 2021 17:30
--- NOTE | 2021-05-08 09:45 | PDOC ---
PROGRESS NOTES Date of Service: DATE: 05/08/21 TIME: 09:45 Chief Complaint Chief Complaint VTE Prophylaxis Ordered VTE Prophylaxis Devices: Contraindicated VTE Pharmacological Prophylaxi: Contraindicated Assessment/Plan Assessment/Plan Assessment/Plan POD # 4 Robotic assisted laparoscopic left inguinal hernia repair with mesh seroma, hematoma--expected obesity ADMIT Consult surgery heat, elevation pain control dvt prophylaxis, SCD'D NO LOVENOX home meds COLACE fevers, tachy, blood cultures negative-- consider covid testing, possible ID consult--recheck labs t max 101.5 overnight Justifications for Admission Justifications for Admission Other Justification History of Present Illness History of Present Illness Identification/Chief Complaint Chief Complaint PAIN AFTER RECENT SURGERY History of Present Illness History of Present Illness HPI states his abdomen is been more distended and is having increasing pain.//complaining of increased left testicular swelling since surgery. Patient has had a previous hernia repair in the past. 45-year-old male who had bilateral inguinal hernia repairs several years ago is recurrent left inguinal hernia possible right suspect hematoma secondary extensive dissection, should be self limiting. encouraged elevation. Past Medical History Past Medical History hernia repair Family History Family History: High Cholestrol, Hypertension Social History Smoke: <1 pack per day Drugs: None Current Problem List Problem List Problems Medical Problems: (1) Post-op pain Status: Acute Current Medications Current Medications Current Medications Fentanyl Citrate (Fentanyl 2ml Vial) 75 mcg 1X ONCE IVP Last administered on 05/06/21at 20:50; Start 05/06/21 at 20:00; Stop 05/06/21 at 20:01; Status DC Ringer's Solution 1,000 ml @ 100 mls/hr 1X ONCE IV Last administered on 05/06/21at 20:52; Start 05/06/21 at 20:30; Stop 05/07/21 at 06:29; Status DC Iohexol (Omnipaque 300 Mg/ml) 75 ml 1X ONCE IV Last administered on 05/06/21at 21:15; Start 05/06/21 at 20:30; Stop 05/06/21 at 20:31; Status DC Info (CONTRAST GIVEN -- Rx MONITORING) 1 each PRN DAILY PRN MC SEE COMMENTS; Start 05/06/21 at 20:30; Stop 05/08/21 at 20:29 Ondansetron HCl (Zofran) 4 mg PRN Q8HRS PRN IV NAUSEA/VOMITING; Start 05/06/21 at 22:30; Stop 05/07/21 at 22:29 Morphine Sulfate (Morphine Sulfate) 4 mg PRN Q2HR PRN IV PAIN; Start 05/06/21 at 22:30; Stop 05/07/21 at 22:29 Acetaminophen (Tylenol) 650 mg PRN Q4HRS PRN PO FEVER > 100.3'F Last a dministered on 05/06/21at 23:16; Start 05/06/21 at 22:30; Stop 05/07/21 at 22:29 Iohexol (Omnipaque 300 Mg/ml) 100 ml STK-MED ONCE .ROUTE ; Start 05/07/21 at 00:41; Stop 05/07/21 at 00:42; Status DC Active Scripts Active Percocet 5-325 Mg Tablet (Oxycodone/Acetaminophen) 1 Each Tablet 1 Tab PO Q6HRS PRN MDD 4 Tablet(s) 5 Days Reported Clonidine Tts-2 (Clonidine) 1 Each Patch.tdwk 1 Patch TD WEEKLY Losartan Potassium 100 Mg Tablet 100 Mg PO DAILY Stool Softener (Docusate Sodium) 50 Mg Capsule 1 Cap PO PRN DAILY PRN Naproxen Sodium 220 Mg Capsule 220 Mg PO PRN BID PRN Risperdal Consta (Risperidone Microspheres) 37.5 Mg/2 Ml Disp.syrin 1 Syr IM UD Allergies Allergies: Coded Allergies: No Known Drug Allergies (Unverified , 05/03/21) ROS General: No: Chills, Night Sweats, Fatigue, Malaise, Appetite, Other PSYCHOLOGICAL ROS: No: Anxiety, Behavioral Disorder, Concentration difficultie, Decreased libido, Depression, Disorientation, Hallucinations, Hostility, Irritablity, Memory difficulties, Mood Swings, Obsessive thoughts, Physical abuse, Sexual abuse, Sleep disturbances, Suicidal ideation, Other Eyes: No Blurry vision, No Decreased vision, No Double vision, No Dry eyes, No Excessive tearing, No Eye Pain, No Itchy Eyes, No Loss of vision, No Photophobia, No Scotomata, No Uses contacts, No Uses glasses, No Other HEENT: No: Heacaches, Visual Changes, Hearing change, Nasal congestion, Nasal discharge, Oral lesions, Sinus pain, Sore Throat, Epistaxis, Sneezing, Snoring, Tinnitus, Vertigo, Vocal changes, Other ALLERGY AND IMMUNOLOGY: No: Hives, Insect Bite Sensitivity, Itchy/Watery Eyes, Nasal Congestion, Post Nasal Drip, Seasonal Allergies, Other Hematological and Lymphatic: No: Bleeding Problems, Blood Clots, Blood Transfusions, Brusing, Night Sweats, Pallor, Swollen Lymph Nodes, Other ENDOCRINE: No: Breast Changes, Galactorrhea, Hair Pattern Changes, Hot Flashes, Malaise/lethargy, Mood Swings, Palpitations, Polydipsia/polyuria, Skin Changes, Temperature Intolerance, Unexpected Weight Changes, Other Breast: No New/Changing Breast Lumps, No Nipple changes, No Nipple discharge, No Other Respiratory: No: Cough, Hemoptysis, Orthopnea, Pleuritic Pain, Shortness of breath, SOB with excertion, Sputum Changes, Stridor, Tachypnea, Wheezing, Other Cardiovascular: No Chest Pain, No Palpitations, No Orthopnea, No Paroxysmal Noc. Dyspnea, No Edema, No Lt Headedness, No Other Gastrointestinal: Yes Abdominal Pain; No Nausea, No Vomiting, No Diarrhea, No Constipation, No Melena, No Hematochezia, No Other Genitourinary: No Dysuria, No Frequency, No Incontinence, No Hematuria, No Retention, No Discharge, No Urgency, No Pain, No Flank Pain, No Other, No , No , No , No , No , No , No Musculoskeletal: Yes Gait Disturbance; No Joint Pain, No Joint Stiffness, No Joint Swelling, No Muscle Pain, No Muscular Weakness, No Pain In:, No Swelling In:, No Other Neurological: No Behavorial Changes, No Bowel/Bladder ControlChng, No Confusion, No Dizziness, No Gait Disturbance, No Headaches, No Impaired Coord/balance, No Memory Loss, No Numbness/Tingling, No Seizures, No Speech Problems, No Tremors, No Visual Changes, No Weakness, No Other Skin: Yes Dry Skin; No Eczema, No Hair Changes, No Lumps, No Mole Changes, No Mottling, No Nail Changes, No Pruritus, No Rash, No Skin Lesion Changes, No Other, No Acne Vitals Vitals Vital Signs Date Time Temp Pulse Resp B/P (MAP) Pulse Ox O2 Delivery O2 Flow Rate FiO2 05/08/21 08:37 105 168/91 05/08/21 07:18 99.2 18 95 Room Air 99.2 Physical Exam Physical Exam Physical Exam Physical Exam : Left testicular swelling and tenderness Skin: Warm, dry, no erythema, no rash. [] Back: Unremarkable Extremities: No deformities, range of motion grossly intact, no lower extremity edema [] Neurologic: Alert and oriented X 3, no focal deficits noted. [] Psychologic: Affect normal, judgement normal, mood normal. [] General: Alert, Oriented X3, Cooperative, No acute distress HEENT: Atraumatic Lungs: Clear to auscultation Heart: RRR, no thrills, no rubs, no gallops, no jug vein distention Breasts: Not examined Abdomen: Normal bowel sounds, Soft Rectal Exam: not examined Extremities: No cyanosis Neuro: Normal speech, Strength at 5/5 X4 ext, Sensation intact, Cranial nerves 3-12 NL Psych/Mental Status: Mental status NL, Mood NL General: Alert, Oriented X3, Cooperative, No acute distress Heart: Regular rate, Normal S1, Normal S2 Lungs: Clear Abdomen: Normal bowel sounds, Soft Extremities: No clubbing, No cyanosis Skin: No rashes, Other (scrotal swelling) Labs LABS Signed PATIENT: JESSICA JEFFERS N ACCOUNT: [id number] : 1975 LOCATION: ER AGE: 45 SEX: M EXAM STATUS: REG ER ORD. PHYSICIAN: DEIDRE VEGA MD REASON: post op distention and testicle swelling, scan through testicles PROCEDURE: CT ABD PELV W/ IV CONTRST ONLY Exam: CT of abdomen and pelvis with contrast INDICATION: Postop distention and testicular swelling TECHNIQUE: Sequential axial images through the abdomen and pelvis obtained following the administration of 75 mL of Omni 300 IV contrast. Sagittal and coronal reformatted images were reconstructed from the axial data and reviewed. Exposure: One or more of the following in the visualized dose reduction techniques were utilized for this examination: 1. Automated exposure control 2. Adjustment of the MA and/or KV according to patient size 3. Use of iterative of reconstructive technique Comparisons: Pelvis CT 03/22/2021 FINDINGS: Heart size is normal. No pericardial effusion. Visualized lung bases are clear. No pleural effusion. Liver, spleen, pancreas, gallbladder and adrenals are unremarkable. No perinephric inflammation or hydronephrosis. No renal or ureteral calculi are identified. Bladder is decompressed not well evaluated. Prostate is not enlarged. Fluid and hemorrhagic products noted along the left pelvic sidewall extending into the left inguinal canal down into the scrotal sac with bilateral hydroceles. Previously seen large fat inguinal hernia is not seen. Small amount of free air is noted in the upper midline abdomen. Large and small bowel are unremarkable. Appendix is normal. No free intra-abdominal air or fluid. No obstruction. Abdominal aorta has a normal course and caliber. Abdominal vasculature is patent. No enlarged intra-abdominal lymph nodes are identified. IMPRESSION: 1. Hemorrhagic products seen extending from the left pelvic sidewall down to the inguinal canal into the scrotum with large bilateral hydroceles. 2. Small amount of free air is noted in the abdomen. Correlate with recency of surgery. Electronically signed by: Jayson De Dios MD (05/06/2021 9:56 PM) [facility] DICTATED and SIGNED BY: JAYSON DE DIOS MD DATE: 05/06/21 [id number] Images Images BRIEF OPERATIVE NOTE Date: Feb 13, 2017 Pre-Op Diagnosis Bilateral Inguinal Hernias Post-Op Diagnosis Same Procedure Performed Robotic assisted Bilateral Inguinal Hernia repair with Mesh Surgeon Same Anesthesia Type: General Blood Loss 10ml Specimens Obtained None Findings as above Complications None Operative Note Operative Note Date: May 03, 2021 1123 Preoperative diagnosis: Recurrent left inguinal hernia Postoperative diagnosis: Same Procedure: Robotic assisted laparoscopic left inguinal hernia repair with mesh Surgeon: Andrew Specimen: None Dictation: Patient is a 45-year-old male who had bilateral inguinal hernia repairs several years ago is recurrent left inguinal hernia possible right. The procedure of recurrent inguinal hernia repairs with with mesh was explained to the patient detail risk benefits were also discussed including bleeding infection injury to intra-abdominal contents possible necessitating further open operations alternatives to this procedure also discussed with the patient who seemed to understand and gave both verbal and written consent to have the procedure performed. Patient was taken to the operating room placed in the supine position general anesthesia was initiated once patient was sleeping intubated placed in low lithotomy position and his abdomen was prepped and dr aped usual sterile fashion using ChloraPrep. Area just above the umbilicus was injected with quarter percent Marcaine with epinephrine incision was made 11 blade scalpel and a varies needle was placed within the abdomen creating pneumoperitoneum once this was complete 8 mm da Yamile port was placed in the 8 mm da Yamile camera was placed within the abdomen which was inspected it was noted on the right side that the mesh was firmly intact there is no hernia defect. On the left side there was a large hernia defect lateral to the mesh which is a direct defect. 8 mm da Yamile port was placed in the right midabdomen and one in the left midabdomen the da Yamile was brought in and docked all port sites. Surgeon went to the robotic console using a grasper and Endo Cassandra scissors the peritoneum over the left inguinal area was taken down was quite difficult secondary to adhesions to the previous mesh and a very large hernia sac this was ultimately reduced. A Bard 3D max medium for the left side was placed over the hernia defect using 3-0 Vicryl several sutures were used to tack the mesh to the lip of the hernia defect as well as several single interrupted sutures along the superior border of the mesh to hold it in place. The peritoneum was then closed over the mesh with a running 2 OV lock absorbable suture. Once this was complete sutures removed from the abdomen the abdomen was suctioned dry of any fluid and blood. The da Yamile robot was undocked from all port sites pneumoperitoneum was reduced all ports were removed the port sites were all closed with running 4-0 subcuticular Monocryl Mastisol Steri-Strips and island dressings were applied. Patient was awakened and extubated operating room taken to recovery in stable condition all sponge instrument needle counts listed as correct estimated blood loss 20 mL. Assessment and Plan Assessmemt and Plan Problems Medical Problems: (1) Post-op pain Status: Acute Comment Review of Relevant I have reviewed the following items france (where applicable) has been applied. Labs Laboratory Tests Test 05/06/21 19:20 05/06/21 20:41 05/07/21 03:20 Urine Collection Type Unknown Urine Color Straw Urine Clarity Clear Urine pH 7.0 (<5.0-8.0) Urine Specific [place] <=1.005 (1.000-1.030) Urine Protein Negative mg/dL (NEG-TRACE) Urine Glucose (UA) Negative mg/dL (NEG) Urine Ketones (Stick) Negative mg/dL (NEG) Urine Blood Negative (NEG) Urine Nitrite Negative (NEG) Urine Bilirubin Negative (NEG) Urine Urobilinogen Dipstick 1.0 mg/dL (0.2 mg/dL) Urine Leukocyte Esterase Negative (NEG) Urine RBC 0 /HPF (0-2) Urine WBC 0 /HPF (0-4) Urine Squamous Epithelial Cells Occ /LPF Urine Bacteria 0 /HPF (0-FEW) White Blood Count 10.0 x10^3/uL (4.0-11.0) 9.8 x10^3/uL (4.0-11.0) Red Blood Count 3.84 x10^6/uL (4.30-5.70) 3.95 x10^6/uL (4.30-5.70) Hemoglobin 11.5 g/dL (13.0-17.5) 11.8 g/dL (13.0-17.5) Hematocrit 32.4 % (39.0-53.0) 33.6 % (39.0-53.0) Mean Corpuscular Volume 84 fL (79-100) 85 fL (79-100) Mean Corpuscular Hemoglobin 30 pg (25-35) 30 pg (25-35) Mean Corpuscular Hemoglobin Concent 36 g/dL (31-37) 35 g/dL (31-37) Red Cell Distribution Width 13.4 % (11.5-14.5) 13.2 % (11.5-14.5) Platelet Count 145 x10^3/uL (140-400) 139 x10^3/uL (140-400) Neutrophils (%) (Auto) 72 % (31-73) 64 % (31-73) Lymphocytes (%) (Auto) 17 % (24-48) 24 % (24-48) Monocytes (%) (Auto) 11 % (0-9) 12 % (0-9) Eosinophils (%) (Auto) 0 % (0-3) 0 % (0-3) Basophils (%) (Auto) 0 % (0-3) 0 % (0-3) Neutrophils # (Auto) 7.2 x10^3/uL (1.8-7.7) 6.3 x10^3/uL (1.8-7.7) Lymphocytes # (Auto) 1.7 x10^3/uL (1.0-4.8) 2.3 x10^3/uL (1.0-4.8) Monocytes # (Auto) 1.1 x10^3/uL (0.0-1.1) 1.1 x10^3/uL (0.0-1.1) Eosinophils # (Auto) 0.0 x10^3/uL (0.0-0.7) 0.0 x10^3/uL (0.0-0.7) Basophils # (Auto) 0.0 x10^3/uL (0.0-0.2) 0.0 x10^3/uL (0.0-0.2) Sodium Level 139 mmol/L (136-145) 141 mmol/L (136-145) Potassium Level 3.9 mmol/L (3.5-5.1) 3.6 mmol/L (3.5-5.1) Chloride Level 103 mmol/L (98-107) 104 mmol/L (98-107) Carbon Dioxide Level 29 mmol/L (21-32) 29 mmol/L (21-32) Anion Gap 7 (6-14) 8 (6-14) Blood Urea Nitrogen 11 mg/dL (8-26) 9 mg/dL (8-26) Creatinine 1.1 mg/dL (0.7-1.3) 1.0 mg/dL (0.7-1.3) Estimated GFR (Cockcroft-Gault) 87.2 97.3 BUN/Creatinine Ratio 10 (6-20) 9 (6-20) Glucose Level 119 mg/dL (70-99) 114 mg/dL (70-99) Lactic Acid Level 0.5 mmol/L (0.4-2.0) Calcium Level 9.1 mg/dL (8.5-10.1) 9.1 mg/dL (8.5-10.1) Total Bilirubin 2.0 mg/dL (0.2-1.0) 3.0 mg/dL (0.2-1.0) Aspartate Amino Transf (AST/SGOT) 64 U/L (15-37) 62 U/L (15-37) Alanine Aminotransferase (ALT/SGPT) 104 U/L (16-63) 108 U/L (16-63) Alkaline Phosphatase 142 U/L (46-116) 153 U/L (46-116) Total Protein 7.1 g/dL (6.4-8.2) 7.2 g/dL (6.4-8.2) Albumin 3.5 g/dL (3.4-5.0) 3.4 g/dL (3.4-5.0) Albumin/Globulin Ratio 1.0 (1.0-1.7) 0.9 (1.0-1.7) Microbiology 05/07/21 Blood Culture - Preliminary, Resulted NO GROWTH AFTER 1 DAY Medications Current Medications Fentanyl Citrate (Fentanyl 2ml Vial) 75 mcg 1X ONCE IVP Last administered on 05/06/21at 20:50; Start 05/06/21 at 20:00; Stop 05/06/21 at 20:01; Status DC Ringer's Solution 1,000 ml @ 100 mls/hr 1X ONCE IV Last administered on 05/06/21at 20:52; Start 05/06/21 at 20:30; Stop 05/07/21 at 06:29; Status DC Iohexol (Omnipaque 300 Mg/ml) 75 ml 1X ONCE IV Last administered on 05/06/21at 21:15; Start 05/06/21 at 20:30; Stop 05/06/21 at 20:31; Status DC Info (CONTRAST GIVEN -- Rx MONITORING) 1 each PRN DAILY PRN MC SEE COMMENTS; S tart 05/06/21 at 20:30; Stop 05/08/21 at 20:29 Ondansetron HCl (Zofran) 4 mg PRN Q8HRS PRN IV NAUSEA/VOMITING; Start 05/06/21 at 22:30; Stop 05/07/21 at 22:29; Status DC Morphine Sulfate (Morphine Sulfate) 4 mg PRN Q2HR PRN IV PAIN; Start 05/06/21 at 22:30; Stop 05/07/21 at 22:29; Status DC Acetaminophen (Tylenol) 650 mg PRN Q4HRS PRN PO FEVER > 100.3'F Last administered on 05/07/21at 19:38; Start 05/06/21 at 22:30; Stop 05/07/21 at 22:29; Status DC Iohexol (Omnipaque 300 Mg/ml) 100 ml STK-MED ONCE .ROUTE ; Start 05/07/21 at 00:41; Stop 05/07/21 at 00:42; Status DC Clonidine HCl (Catapres Tts-2) 1 patch WEEKLY TD Last administered on 05/07/21at 17:45; Start 05/07/21 at 17:30 Oxycodone/ Acetaminophen (Percocet 5/325) 1 tab PRN Q6HRS PRN PO MODERATE TO S EVERE PAIN; Start 05/07/21 at 17:15 Docusate Sodium (Colace) 100 mg PRN DAILY PRN PO CONSTIPATION; Start 05/07/21 at 17:30; Stop 05/07/21 at 18:06; Status DC Losartan Potassium (Cozaar) 100 mg DAILY PO Last administered on 05/08/21at 08:37; Start 05/08/21 at 09:00 Naproxen (Naprosyn) 250 mg PRN BID PRN PO pain control; Start 05/07/21 at 17:30 Sodium Chloride (Normal Saline Flush) 3 ml QSHIFT PRN IV AFTER MEDS AND BLOOD DRAWS; Start 05/07/21 at 18:15 Al Hydroxide/Mg Hydroxide (Mylanta Plus Xs) 30 ml PRN DAILY PRN PO HEARTBURN / GAS; Start 05/07/21 at 18:15 Docusate Sodium (Colace) 100 mg PRN BID PRN PO HARD STOOLS; Start 05/07/21 at 18:15 Albuterol Sulfate (Ventolin Neb Soln) 2.5 mg PRN Q4HRS PRN NEB SHORTNESS OF BREATH; Start 05/07/21 at 18:15 Guaifenesin (Robitussin) 200 mg PRN Q4HRS PRN PO COUGH; Start 05/07/21 at 18:15 Lorazepam (Ativan) 0.5 mg PRN Q4HRS PRN PO ANXIETY / AGITATION; Start 05/07/21 at 18:15 Piperacillin Sod/ Tazobactam Sod (Zosyn Per Pharmacy) 1 each PRN DAILY PRN MC SEE COMMENTS; Start 05/07/21 at 20:00 Piperacillin Sod/ Tazobactam Sod 3.375 gm/Sodium Chloride 50 ml @ 100 mls/hr Q6HRS IV ; Start 05/07/21 at 21:00; Stop 05/07/21 at 22:51; Status DC Piperacillin Sod/ Tazobactam Sod 3.375 gm/Sodium Chloride 50 ml @ 100 mls/hr Q6HRS IV Last administered on 05/07/21at 23:50; Start 05/08/21 at 00:00 Active Scripts Active Percocet 5-325 Mg Tablet (Oxycodone/Acetaminophen) 1 Each Tablet 1 Tab PO Q6HRS PRN MDD 4 Tablet(s) 5 Days Reported Clonidine Tts-2 (Clonidine) 1 Each Patch.tdwk 1 Patch TD WEEKLY Losartan Potassium 100 Mg Tablet 100 Mg PO DAILY Stool Softener (Docusate Sodium) 50 Mg Capsule 1 Cap PO PRN DAILY PRN Naproxen Sodium 220 Mg Capsule 220 Mg PO PRN BID PRN Risperdal Consta (Risperidone Microspheres) 37.5 Mg/2 Ml Disp.syrin 1 Syr IM UD Vitals/I & O Vital Sign - Last 24 Hours 05/07/21 05/07/21 05/07/21 05/07/21 11:18 15:05 19:30 19:31 Temp 99.7 98.4 101.5 99.7 98.4 101.5 Pulse 104 69 116 Resp 18 20 16 B/P (MAP) 149/99 (116) 149/93 (111) 144/97 (113) Pulse Ox 96 98 95 O2 Delivery Room Air Room Air Room Air Room Air 05/07/21 05/08/21 05/08/21 05/08/21 22:57 03:00 07:18 08:37 Temp 99.5 99.2 99.2 99.5 99.2 99.2 Pulse 103 99 105 105 Resp 20 18 18 B/P (MAP) 133/90 (104) 149/97 (114) 168/91 (116) 168/91 Pulse Ox 97 97 95 O2 Delivery Room Air Room Air Room Air Intake and Output 05/07/21 05/07/21 05/08/21 15:00 23:00 07:00 Intake Total 200 ml 300 ml Output Total 200 ml 375 ml Balance -200 ml -175 ml 300 ml Justicifation of Admission Dx: Justifications for Admission: Justification of Admission Dx: Yes LUIS MARTIN MD May 08, 2021 09:45
--- NOTE | 2021-05-08 10:01 | NUR ---
SW following. Discussed with RN, pt from home, room air, GI soft. Surgery following. Surgery wondering if pt needs a COVID test. RN notifying Dr. Marlow. SW will continue to follow.
[2021-05-08 11:00] VITALS: BP 131/57
--- NOTE | 2021-05-08 11:08 | RAD ---
EXAM: Chest, single view; abdomen, single view. HISTORY: Fever. COMPARISON: CT dated 05/06/2021. FINDINGS: CHEST: A frontal view of the chest obtained. There is no infiltrate, pleural effusion or pneumothorax . The heart is normal in size for portable technique. ABDOMEN: A frontal view of the abdomen is obtained. There is a small of gas and stool within the colo n and rectum. There is no evidence of bowel obstruction. IMPRESSION: 1. No acute pulmonary finding. 2. Nonobstructive bowel gas pattern. Electronically signed by: Maryse Li MD (05/08/2021 11:05 AM) [id number]
--- NOTE | 2021-05-08 12:03 | CONS ---
DATE OF CONSULTATION: 05/07/2021 REFERRING PHYSICIAN: Dr. Marlow. REASON FOR CONSULTATION: Fever postop. HISTORY OF PRESENT ILLNESS: A 45-year-old male who underwent a left hernia repair with inguinal mesh placement about 4 days ago, presented to the ER on 05/06/2021 with worsening pain, abdominal distention and testicular swelling 2 days prior to admission, white count was 10.0, lactate of 0.5. UA was negative. Hemoglobin of 11.5, creatinine of 1.1, temperature of 100.8. The patient underwent CT abdomen and pelvis which showed hemorrhagic products seen extending from the left pelvic sidewall down to the inguinal canal into the scrotum with large bilateral hydroceles, small amount of free air is noted in the abdomen, correlate with recent surgery. The patient was started on Zosyn. The patient continues to remain febrile. ID consultation has been requested for antibiotic management. The patient has a history of bilateral inguinal hernia repair several years ago with recurrence on the left side and possibly on the right. Today, the patient complains of pain, decreased appetite. No nausea, vomiting, diarrhea, abdominal pain, passing gas is frustrated as this keeps on coming back. PAST MEDICAL HISTORY: Inguinal hernia, recurrent, hypertension, hyperlipidemia, Schizophrenia Surgical history: Hernia repair x2, recently 4 days ago [employer] FAMILY HISTORY: As per HPI. SOCIAL HISTORY: Denies smoking, though per chart, it says he smokes less than 1 pack per day. No drugs. Works in food industry. No alcohol. CURRENT MEDICATIONS: Zosyn. Other medications reviewed in medication list. The patient was not on any antibiotics prior to admission. ALLERGIES: No known drug allergies. REVIEW OF SYSTEMS: Negative except for above in HPI. PHYSICAL EXAMINATION: VITAL SIGNS: Temperature 99.2, T-max 101.5, pulse 105, respiratory rate 18, blood pressure 168/91, oxygen saturation 95% on room air. GENERAL: Alert, oriented x 3, male sitting upright in chair in no acute distress, cooperative. Nontoxic appearing HEENT: Normocephalic, atraumatic. Anicteric. No thrush. Oral mucosa moist. NECK: Supple, no JVD. LUNGS: Clear bilaterally. No wheezing. HEART: S1, S2. No gallops or murmurs. ABDOMEN: Distended, hypoactive bowel sounds. Tenderness present, diffuse lower quadrants, scrotal swelling present. No overlying redness or warmth noted. Tender on superficial palpation. Unable to feel the testis due to swelling. EXTREMITIES: No edema, no cyanosis. DERMATOLOGIC: Warm, dry, no generalized rash. NEUROLOGIC: Alert, oriented x 3, grossly nonfocal. PSYCHIATRIC: Calm and cooperative. LABORATORY DATA: WBC 9.8, hemoglobin 11.8, platelets 139, was 145, monos 11. Sodium 141, potassium 3.6, chloride 104, bicarbonate 29, BUN 9, creatinine 1.0, glucose 114, lactate 0.5. LFTs are elevated with total bilirubin of 3.0, AST 62, ALT 108, alkaline phosphatase 153, total protein 7.2, albumin 3.4. UA negative. IMPRESSION: 1. Febrile illness, source appears . UA negative, likely hematoma from recent surgery vs infected seroma/abscess. 2. Status post robotic-assisted laparoscopic left inguinal hernia repair with mesh 4 days as outpatient.Now with worsening scrotal swelling,testicular pain Hematoma, pelvic wall on CT. 3. History of recurrent inguinal hernia. 4. Bilateral hydroceles on CT. 5. Abnormal LFTs. 6. History of schizophrenia. 7. Hypertension and hyperlipidemia. 8. Mild thrombocytopenia. RECOMMENDATIONS: 1. Continue Zosyn. 2. Add Zyvox. 3. General surgery following. 4. The patient may need transfer to another center for urology evaluation. 5. Follow up labs and cultures. 6. Scrotal elevation. 7. Pain control per primary. 8.Continue supportive care. Thank you, Dr. Marlow for consulting Infectious Disease to participate in this patient's care. If you have any questions, do not hesitate to contact me. KACEY BRADFORD: Ani TID: [id number] MTDD
[2021-05-08] MEDS: LINEZOLID 600 MG TABLET PO SCH ×2 (13:45→19:58)
[2021-05-08 14:11] LABS: BASO % 0 % (0-3); EOS # 0.1 x10^3/uL (0.0-0.7); EOS % 1 % (0-3); HEMOGLOBIN 11.5 g/dL (13.0-17.5); LYMPH # 1.6 x10^3/uL (1.0-4.8); LYMPH % 18 % (24-48); MEAN CORPUSCULAR HEMOGLOBIN 30 pg (25-35); MEAN CORPUSCULAR HGB CONC 35 g/dL (31-37); MEAN CORPUSCULAR VOLUME 86 fL (79-100); MONO # 0.8 x10^3/uL (0.0-1.1); MONO % 9 % (0-9); NEUT # 6.6 x10^3/uL (1.8-7.7); NEUT % 73 % (31-73); PLATELET COUNT 154 x10^3/uL (140-400); RED BLOOD COUNT 3.84 x10^6/uL (4.30-5.70); RED CELL DISTRIBUTION WIDTH 13.6 % (11.5-14.5)
[2021-05-08 14:30] LABS: ALBUMIN 3.1 g/dL (3.4-5.0); ALBUMIN/GLOBULIN RATIO 0.8 (1.0-1.7); CREATININE 1.2 mg/dL (0.7-1.3); GFR 78.9; POTASSIUM 3.7 mmol/L (3.5-5.1); TOTAL BILIRUBIN 4.2 mg/dL (0.2-1.0); TOTAL PROTEIN 7.1 g/dL (6.4-8.2)
[2021-05-08 15:00] VITALS: BP 120/78
[2021-05-08 19:00] VITALS: BP 130/83
[2021-05-08] MEDS: LACTOBACILLUS RHAMNOSUS GG 1 CAPSULE. PO SCH (19:58)
[2021-05-08] MEDS: oxyCODONE/APAP 5/325 1 TAB TABLET PO PRN (19:58)
[2021-05-08 23:13] VITALS: BP 116/71
[2021-05-09 02:53] VITALS: BP 115/76
[2021-05-09 05:21] LABS: BASO % 0 % (0-3); EOS # 0.1 x10^3/uL (0.0-0.7); EOS % 1 % (0-3); HEMATOCRIT 31.8 % (39.0-53.0); HEMOGLOBIN 10.8 g/dL (13.0-17.5); LYMPH # 2.2 x10^3/uL (1.0-4.8); LYMPH % 26 % (24-48); MEAN CORPUSCULAR HEMOGLOBIN 30 pg (25-35); MEAN CORPUSCULAR HGB CONC 34 g/dL (31-37); MEAN CORPUSCULAR VOLUME 88 fL (79-100); MONO # 1.1 x10^3/uL (0.0-1.1); MONO % 13 % (0-9); NEUT # 4.9 x10^3/uL (1.8-7.7); NEUT % 59 % (31-73); PLATELET COUNT 158 x10^3/uL (140-400); RED BLOOD COUNT 3.63 x10^6/uL (4.30-5.70); RED CELL DISTRIBUTION WIDTH 13.7 % (11.5-14.5); WHITE BLOOD COUNT 8.3 x10^3/uL (4.0-11.0)
[2021-05-09 05:51] LABS: ALBUMIN/GLOBULIN RATIO 0.8 (1.0-1.7); CALCIUM 8.9 mg/dL (8.5-10.1); CREATININE 1.2 mg/dL (0.7-1.3); GFR 78.9; POTASSIUM 3.7 mmol/L (3.5-5.1); TOTAL BILIRUBIN 3.8 mg/dL (0.2-1.0); TOTAL PROTEIN 6.8 g/dL (6.4-8.2)
[2021-05-09] MEDS: PIPERACILLIN/TAZOBACTAM 3.375 GM in IV NORMAL SALINE 50ML 50 ML IV SCH ×3 (05:54→18:29)
[2021-05-09] MEDS: oxyCODONE/APAP 5/325 1 TAB TABLET PO PRN ×2 (05:56→15:53)
[2021-05-09 07:00] VITALS: BP 122/90
[2021-05-09] MEDS: LACTOBACILLUS RHAMNOSUS GG 1 CAPSULE. PO SCH ×2 (08:13→21:30)
[2021-05-09] MEDS: LINEZOLID 600 MG TABLET PO SCH ×2 (08:13→21:30)
[2021-05-09] MEDS: LOSARTAN POTASSIUM 50 MG TABLET. PO SCH (08:13)
--- NOTE | 2021-05-09 08:45 | PDOC2 ---
GI CONSULT Date of Service: DATE: 05/09/21 TIME: 08:45 Reason For Consult: elevated LFTs HPI: HPI: 45 y/o male s/p LIH repair w/ mesh on 05/03/21, then evaluated in ER on 05/06 for scrotal swelling/testicular pain and admitted w/ seroma/hematoma. LFTs elevated x 3 days - fluctuating - we are asked to see for this. Denies reflux, dysphagia, n/v, abd pain, diarrhea, constipation, hematochezia, melena, and weight loss. Good appetite. He tells me no previous EGD or colonoscopy; however, he did have a colonoscopy by Dr. Levy in 08/2013 for rectal bleeding/anal pruritus that showed internal hemorrhoids. Denies GB, liver, pancreas, and PUD history. Diverticulosis noted on imaging. On Naprosyn. PMH: PMH: HTN, HLD, schizophrenia bilateral inguinal hernia repair, head injury/surgery as a child FH: Family History: No pertinent hx (denies GI cancers), Hypertension Social History: Smoke: <1 pack per day ALCOHOL: none Drugs: None ROS: GEN: +fevers HEENT: Denies blurred vision, sore throat CV: Denies chest pain RESP: Denies shortness of air, cough GI: Per HPI : Denies hematuria, dysuria ENDO: Denies weight changes NEURO: Denies confusion, dizziness MSK: Denies weakness, joint pain/swelling SKIN: Denies jaundice, pruritus Vitals: Vitals: Vital Signs Date Time Temp Pulse Resp B/P (MAP) Pulse Ox O2 Delivery O2 Flow Rate FiO2 05/09/21 08:13 84 122/90 05/09/21 07:00 97.9 18 96 Room Air 97.9 Labs: Labs: Laboratory Tests Test 05/08/21 11:05 05/08/21 13:50 05/09/21 04:55 SARS-CoV-2 RNA (JUNE) Negative (Negative) White Blood Count 9.0 x10^3/uL (4.0-11.0) 8.3 x10^3/uL (4.0-11.0) Red Blood Count 3.84 x10^6/uL (4.30-5.70) 3.63 x10^6/uL (4.30-5.70) Hemoglobin 11.5 g/dL (13.0-17.5) 10.8 g/dL (13.0-17.5) Hematocrit 33.0 % (39.0-53.0) 31.8 % (39.0-53.0) Mean Corpuscular Volume 86 fL (79-100) 88 fL (79-100) Mean Corpuscular Hemoglobin 30 pg (25-35) 30 pg (25-35) Mean Corpuscular Hemoglobin Concent 35 g/dL (31-37) 34 g/dL (31-37) Red Cell Distribution Width 13.6 % (11.5-14.5) 13.7 % (11.5-14.5) Platelet Count 154 x10^3/uL (140-400) 158 x10^3/uL (140-400) Neutrophils (%) (Auto) 73 % (31-73) 59 % (31-73) Lymphocytes (%) (Auto) 18 % (24-48) 26 % (24-48) Monocytes (%) (Auto) 9 % (0-9) 13 % (0-9) Eosinophils (%) (Auto) 1 % (0-3) 1 % (0-3) Basophils (%) (Auto) 0 % (0-3) 0 % (0-3) Neutrophils # (Auto) 6.6 x10^3/uL (1.8-7.7) 4.9 x10^3/uL (1.8-7.7) Lymphocytes # (Auto) 1.6 x10^3/uL (1.0-4.8) 2.2 x10^3/uL (1.0-4.8) Monocytes # (Auto) 0.8 x10^3/uL (0.0-1.1) 1.1 x10^3/uL (0.0-1.1) Eosinophils # (Auto) 0.1 x10^3/uL (0.0-0.7) 0.1 x10^3/uL (0.0-0.7) Basophils # (Auto) 0.0 x10^3/uL (0.0-0.2) 0.0 x10^3/uL (0.0-0.2) Sodium Level 141 mmol/L (136-145) 136 mmol/L (136-145) Potassium Level 3.7 mmol/L (3.5-5.1) 3.7 mmol/L (3.5-5.1) Chloride Level 103 mmol/L (98-107) 102 mmol/L (98-107) Carbon Dioxide Level 30 mmol/L (21-32) 24 mmol/L (21-32) Anion Gap 8 (6-14) 10 (6-14) Blood Urea Nitrogen 10 mg/dL (8-26) 10 mg/dL (8-26) Creatinine 1.2 mg/dL (0.7-1.3) 1.2 mg/dL (0.7-1.3) Estimated GFR (Cockcroft-Gault) 78.9 78.9 BUN/Creatinine Ratio 8 (6-20) 8 (6-20) Glucose Level 142 mg/dL (70-99) 110 mg/dL (70-99) Calcium Level 9.0 mg/dL (8.5-10.1) 8.9 mg/dL (8.5-10.1) Total Bilirubin 4.2 mg/dL (0.2-1.0) 3.8 mg/dL (0.2-1.0) Aspartate Amino Transf (AST/SGOT) 118 U/L (15-37) 95 U/L (15-37) Alanine Aminotransferase (ALT/SGPT) 165 U/L (16-63) 149 U/L (16-63) Alkaline Phosphatase 213 U/L (46-116) 204 U/L (46-116) C-Reactive Protein, Quantitative 127.0 mg/L (0-3.3) Total Protein 7.1 g/dL (6.4-8.2) 6.8 g/dL (6.4-8.2) Albumin 3.1 g/dL (3.4-5.0) 3.0 g/dL (3.4-5.0) Albumin/Globulin Ratio 0.8 (1.0-1.7) 0.8 (1.0-1.7) Procalcitonin 0.14 ng/mL (0.00-0.10) Allergies: Coded Allergies: No Known Drug Allergies (Unverified , 05/03/21) Medications: Current Medications Medications (Trade) Dose Ordered Sig/Toño Route PRN Reason Start Time Stop Time Status Last Admin Dose Admin Losartan Potassium (Cozaar) 100 mg DAILY PO 05/08/21 09:00 05/09/21 08:13 Linezolid (Zyvox) 600 mg BID PO 05/08/21 11:00 05/09/21 08:13 Lactobacillus Rhamnosus (Culturelle) 1 cap BID PO 05/08/21 21:00 05/09/21 08:13 Imaging: Imaging: CT A/P 05/06 IMPRESSION: 1. Hemorrhagic products seen extending from the left pelvic sidewall down to the inguinal canal into the scrotum with large bilateral hydroceles. 2. Small amount of free air is noted in the abdomen. Correlate with recency of surgery. KUB 05/08 IMPRESSION: 1. No acute pulmonary finding. 2. Nonobstructive bowel gas pattern. CXR 05/08 IMPRESSION: 1. No acute pulmonary finding. 2. Nonobstructive bowel gas pattern. PE: GEN: NAD - standing in room, breakfast consume HEENT: Atraumatic, PERRLA LUNGS: CTAB HEART: RRR ABD: NABS, round, soft, non-tender EXTREMITY: No edema SKIN: No rashes, no jaundice NEURO/PSYCH: A & O 3, somewhat odd affect but friendly A/P: A/P: S/p LIH repair, now w/ seroma/hematoma, fevers Mild normocytic anemia, elevated LFTs CRC screen - normal except hemorrhoids in 2012 Diverticulosis COVID negative -- D/w Dr. Levy - ?resorption Check liver US, follow labs. Chart also lists colectomy/ostomy/takedown - he didn't mention this to me - will clarify. CAMELIA RAMEY May 09, 2021 08:45
--- NOTE | 2021-05-09 09:48 | PDOC ---
Infectious Disease Note Subjective: Subjective Pt feels better less swelling and pain Vital Signs: Vital Signs Vital Signs Date Time Temp Pulse Resp B/P (MAP) Pulse Ox O2 Delivery O2 Flow Rate FiO2 05/09/21 08:13 84 122/90 05/09/21 07:00 97.9 18 96 Room Air 97.9 Physical Exam: PHYSICAL EXAM GENERAL: Alert, oriented x 3, male sitting upright in chair in no acute distress, cooperative. Nontoxic appearing HEENT: Normocephalic, atraumatic. Anicteric. No thrush. Oral mucosa moist. NECK: Supple, no JVD. LUNGS: Clear bilaterally. No wheezing. HEART: S1, S2. No gallops or murmurs. ABDOMEN: Distended, hypoactive bowel sounds. Tenderness present, diffuse lower quadrants, scrotal swelling present. No overlying redness or warmth noted. Tender on superficial palpation. Unable to feel the testis due to swelling. EXTREMITIES: No edema, no cyanosis. DERMATOLOGIC: Warm, dry, no generalized rash. NEUROLOGIC: Alert, oriented x 3, grossly nonfocal. PSYCHIATRIC: Calm and cooperative. Medications: Inpatient Meds: Medications reviewed. Labs: Lab Laboratory Tests Test 05/08/21 11:05 05/08/21 13:50 05/09/21 04:55 SARS-CoV-2 RNA (JUNE) Negative (Negative) White Blood Count 9.0 x10^3/uL (4.0-11.0) 8.3 x10^3/uL (4.0-11.0) Red Blood Count 3.84 x10^6/uL (4.30-5.70) 3.63 x10^6/uL (4.30-5.70) Hemoglobin 11.5 g/dL (13.0-17.5) 10.8 g/dL (13.0-17.5) Hematocrit 33.0 % (39.0-53.0) 31.8 % (39.0-53.0) Mean Corpuscular Volume 86 fL (79-100) 88 fL (79-100) Mean Corpuscular Hemoglobin 30 pg (25-35) 30 pg (25-35) Mean Corpuscular Hemoglobin Concent 35 g/dL (31-37) 34 g/dL (31-37) Red Cell Distribution Width 13.6 % (11.5-14.5) 13.7 % (11.5-14.5) Platelet Count 154 x10^3/uL (140-400) 158 x10^3/uL (140-400) Neutrophils (%) (Auto) 73 % (31-73) 59 % (31-73) Lymphocytes (%) (Auto) 18 % (24-48) 26 % (24-48) Monocytes (%) (Auto) 9 % (0-9) 13 % (0-9) Eosinophils (%) (Auto) 1 % (0-3) 1 % (0-3) Basophils (%) (Auto) 0 % (0-3) 0 % (0-3) Neutrophils # (Auto) 6.6 x10^3/uL (1.8-7.7) 4.9 x10^3/uL (1.8-7.7) Lymphocytes # (Auto) 1.6 x10^3/uL (1.0-4.8) 2.2 x10^3/uL (1.0-4.8) Monocytes # (Auto) 0.8 x10^3/uL (0.0-1.1) 1.1 x10^3/uL (0.0-1.1) Eosinophils # (Auto) 0.1 x10^3/uL (0.0-0.7) 0.1 x10^3/uL (0.0-0.7) Basophils # (Auto) 0.0 x10^3/uL (0.0-0.2) 0.0 x10^3/uL (0.0-0.2) Sodium Level 141 mmol/L (136-145) 136 mmol/L (136-145) Potassium Level 3.7 mmol/L (3.5-5.1) 3.7 mmol/L (3.5-5.1) Chloride Level 103 mmol/L (98-107) 102 mmol/L (98-107) Carbon Dioxide Level 30 mmol/L (21-32) 24 mmol/L (21-32) Anion Gap 8 (6-14) 10 (6-14) Blood Urea Nitrogen 10 mg/dL (8-26) 10 mg/dL (8-26) Creatinine 1.2 mg/dL (0.7-1.3) 1.2 mg/dL (0.7-1.3) Estimated GFR (Cockcroft-Gault) 78.9 78.9 BUN/Creatinine Ratio 8 (6-20) 8 (6-20) Glucose Level 142 mg/dL (70-99) 110 mg/dL (70-99) Calcium Level 9.0 mg/dL (8.5-10.1) 8.9 mg/dL (8.5-10.1) Total Bilirubin 4.2 mg/dL (0.2-1.0) 3.8 mg/dL (0.2-1.0) Aspartate Amino Transf (AST/SGOT) 118 U/L (15-37) 95 U/L (15-37) Alanine Aminotransferase (ALT/SGPT) 165 U/L (16-63) 149 U/L (16-63) Alkaline Phosphatase 213 U/L (46-116) 204 U/L (46-116) C-Reactive Protein, Quantitative 127.0 mg/L (0-3.3) Total Protein 7.1 g/dL (6.4-8.2) 6.8 g/dL (6.4-8.2) Albumin 3.1 g/dL (3.4-5.0) 3.0 g/dL (3.4-5.0) Albumin/Globulin Ratio 0.8 (1.0-1.7) 0.8 (1.0-1.7) Procalcitonin 0.14 ng/mL (0.00-0.10) Objective: Assessment: LABORATORY DATA: WBC 9.8, hemoglobin 11.8, platelets 139, was 145, monos 11. Sodium 141, potassium 3.6, chloride 104, bicarbonate 29, BUN 9, creatinine 1.0, glucose 114, lactate 0.5. LFTs are elevated with total bilirubin of 3.0, AST 62, ALT 108, alkaline phosphatase 153, total protein 7.2, albumin 3.4. UA negative. IMPRESSION: 1. Febrile illness, source appears . UA negative, likely hematoma from recent surgery vs infected seroma/abscess. 2. Status post robotic-assisted laparoscopic left inguinal hernia repair with mesh 4 days as outpatient.Now with worsening scrotal swelling,testicular pain Hematoma, pelvic wall on CT. 3. History of recurrent inguinal hernia. 4. Bilateral hydroceles on CT. 5. Abnormal LFTs. 6. History of schizophrenia. 7. Hypertension and hyperlipidemia. 8. Mild thrombocytopenia. Plan: Plan of Care 1. Continue Zosyn. 2. Cont yvox. 3. General surgery following. 4. The patient may need transfer to another center for urology evaluation. 5. Follow up labs and cultures. 6. Scrotal elevation. 7. Pain control per primary. 8.Continue supportive care. SUMIT HZU MD May 09, 2021 09:48
--- NOTE | 2021-05-09 10:39 | RAD ---
EXAM: Abdomen sonogram. HISTORY: Abnormal liver function laboratory values. TECHNIQUE: Sonographic imaging of the abdomen was performed. COMPARISON: None. FINDINGS: The liver is normal in size. No focal hepatic lesion is seen. The gallbladder is slightly c ontracted and otherwise unremarkable. The common bile duct is normal in caliber. The right kidney, pa ncreas and inferior vena cava are unremarkable. IMPRESSION: No acute sonographic finding. No finding correlate with abnormal liver function laborator y values. Electronically signed by: Maryse Li MD (05/09/2021 10:37 AM) [id number]
[2021-05-09 11:00] VITALS: BP 136/86
--- NOTE | 2021-05-09 12:17 | PDOC ---
SURGICAL PROGRESS NOTE DATE: 05/09/21 TIME: 12:15 Subjective Patient doing much better today less pain would like to go home Vital Signs Vital Signs Date Time Temp Pulse Resp B/P (MAP) Pulse Ox O2 Delivery O2 Flow Rate FiO2 05/09/21 11:00 98.4 107 18 136/86 (103) 96 Room Air 98.4 I&O Intake and Output 05/09/21 07:00 Intake Total 800 ml Balance 800 ml Intake Oral 650 ml IV Total 150 ml # Voids 2 # Bowel Movements 1 PATIENT HAS A CLAROS: No General: Alert, Oriented X3, Cooperative, No acute distress Abdomen: Other (Scrotal swelling mildly improved less tender) Labs Laboratory Tests Test 05/08/21 11:05 05/08/21 13:50 05/09/21 04:55 SARS-CoV-2 RNA (JUNE) Negative (Negative) White Blood Count 9.0 x10^3/uL (4.0-11.0) 8.3 x10^3/uL (4.0-11.0) Red Blood Count 3.84 x10^6/uL (4.30-5.70) 3.63 x10^6/uL (4.30-5.70) Hemoglobin 11.5 g/dL (13.0-17.5) 10.8 g/dL (13.0-17.5) Hematocrit 33.0 % (39.0-53.0) 31.8 % (39.0-53.0) Mean Corpuscular Volume 86 fL (79-100) 88 fL (79-100) Mean Corpuscular Hemoglobin 30 pg (25-35) 30 pg (25-35) Mean Corpuscular Hemoglobin Concent 35 g/dL (31-37) 34 g/dL (31-37) Red Cell Distribution Width 13.6 % (11.5-14.5) 13.7 % (11.5-14.5) Platelet Count 154 x10^3/uL (140-400) 158 x10^3/uL (140-400) Neutrophils (%) (Auto) 73 % (31-73) 59 % (31-73) Lymphocytes (%) (Auto) 18 % (24-48) 26 % (24-48) Monocytes (%) (Auto) 9 % (0-9) 13 % (0-9) Eosinophils (%) (Auto) 1 % (0-3) 1 % (0-3) Basophils (%) (Auto) 0 % (0-3) 0 % (0-3) Neutrophils # (Auto) 6.6 x10^3/uL (1.8-7.7) 4.9 x10^3/uL (1.8-7.7) Lymphocytes # (Auto) 1.6 x10^3/uL (1.0-4.8) 2.2 x10^3/uL (1.0-4.8) Monocytes # (Auto) 0.8 x10^3/uL (0.0-1.1) 1.1 x10^3/uL (0.0-1.1) Eosinophils # (Auto) 0.1 x10^3/uL (0.0-0.7) 0.1 x10^3/uL (0.0-0.7) Basophils # (Auto) 0.0 x10^3/uL (0.0-0.2) 0.0 x10^3/uL (0.0-0.2) Sodium Level 141 mmol/L (136-145) 136 mmol/L (136-145) Potassium Level 3.7 mmol/L (3.5-5.1) 3.7 mmol/L (3.5-5.1) Chloride Level 103 mmol/L (98-107) 102 mmol/L (98-107) Carbon Dioxide Level 30 mmol/L (21-32) 24 mmol/L (21-32) Anion Gap 8 (6-14) 10 (6-14) Blood Urea Nitrogen 10 mg/dL (8-26) 10 mg/dL (8-26) Creatinine 1.2 mg/dL (0.7-1.3) 1.2 mg/dL (0.7-1.3) Estimated GFR (Cockcroft-Gault) 78.9 78.9 BUN/Creatinine Ratio 8 (6-20) 8 (6-20) Glucose Level 142 mg/dL (70-99) 110 mg/dL (70-99) Calcium Level 9.0 mg/dL (8.5-10.1) 8.9 mg/dL (8.5-10.1) Total Bilirubin 4.2 mg/dL (0.2-1.0) 3.8 mg/dL (0.2-1.0) Aspartate Amino Transf (AST/SGOT) 118 U/L (15-37) 95 U/L (15-37) Alanine Aminotransferase (ALT/SGPT) 165 U/L (16-63) 149 U/L (16-63) Alkaline Phosphatase 213 U/L (46-116) 204 U/L (46-116) C-Reactive Protein, Quantitative 127.0 mg/L (0-3.3) Total Protein 7.1 g/dL (6.4-8.2) 6.8 g/dL (6.4-8.2) Albumin 3.1 g/dL (3.4-5.0) 3.0 g/dL (3.4-5.0) Albumin/Globulin Ratio 0.8 (1.0-1.7) 0.8 (1.0-1.7) Procalcitonin 0.14 ng/mL (0.00-0.10) Laboratory Tests Test 05/08/21 13:50 05/09/21 04:55 White Blood Count 9.0 x10^3/uL (4.0-11.0) 8.3 x10^3/uL (4.0-11.0) Red Blood Count 3.84 x10^6/uL (4.30-5.70) 3.63 x10^6/uL (4.30-5.70) Hemoglobin 11.5 g/dL (13.0-17.5) 10.8 g/dL (13.0-17.5) Hematocrit 33.0 % (39.0-53.0) 31.8 % (39.0-53.0) Mean Corpuscular Volume 86 fL (79-100) 88 fL (79-100) Mean Corpuscular Hemoglobin 30 pg (25-35) 30 pg (25-35) Mean Corpuscular Hemoglobin Concent 35 g/dL (31-37) 34 g/dL (31-37) Red Cell Distribution Width 13.6 % (11.5-14.5) 13.7 % (11.5-14.5) Platelet Count 154 x10^3/uL (140-400) 158 x10^3/uL (140-400) Neutrophils (%) (Auto) 73 % (31-73) 59 % (31-73) Lymphocytes (%) (Auto) 18 % (24-48) 26 % (24-48) Monocytes (%) (Auto) 9 % (0-9) 13 % (0-9) Eosinophils (%) (Auto) 1 % (0-3) 1 % (0-3) Basophils (%) (Auto) 0 % (0-3) 0 % (0-3) Neutrophils # (Auto) 6.6 x10^3/uL (1.8-7.7) 4.9 x10^3/uL (1.8-7.7) Lymphocytes # (Auto) 1.6 x10^3/uL (1.0-4.8) 2.2 x10^3/uL (1.0-4.8) Monocytes # (Auto) 0.8 x10^3/uL (0.0-1.1) 1.1 x10^3/uL (0.0-1.1) Eosinophils # (Auto) 0.1 x10^3/uL (0.0-0.7) 0.1 x10^3/uL (0.0-0.7) Basophils # (Auto) 0.0 x10^3/uL (0.0-0.2) 0.0 x10^3/uL (0.0-0.2) Sodium Level 141 mmol/L (136-145) 136 mmol/L (136-145) Potassium Level 3.7 mmol/L (3.5-5.1) 3.7 mmol/L (3.5-5.1) Chloride Level 103 mmol/L (98-107) 102 mmol/L (98-107) Carbon Dioxide Level 30 mmol/L (21-32) 24 mmol/L (21-32) Anion Gap 8 (6-14) 10 (6-14) Blood Urea Nitrogen 10 mg/dL (8-26) 10 mg/dL (8-26) Creatinine 1.2 mg/dL (0.7-1.3) 1.2 mg/dL (0.7-1.3) Estimated GFR (Cockcroft-Gault) 78.9 78.9 BUN/Creatinine Ratio 8 (6-20) 8 (6-20) Glucose Level 142 mg/dL (70-99) 110 mg/dL (70-99) Calcium Level 9.0 mg/dL (8.5-10.1) 8.9 mg/dL (8.5-10.1) Total Bilirubin 4.2 mg/dL (0.2-1.0) 3.8 mg/dL (0.2-1.0) Aspartate Amino Transf (AST/SGOT) 118 U/L (15-37) 95 U/L (15-37) Alanine Aminotransferase (ALT/SGPT) 165 U/L (16-63) 149 U/L (16-63) Alkaline Phosphatase 213 U/L (46-116) 204 U/L (46-116) C-Reactive Protein, Quantitative 127.0 mg/L (0-3.3) Total Protein 7.1 g/dL (6.4-8.2) 6.8 g/dL (6.4-8.2) Albumin 3.1 g/dL (3.4-5.0) 3.0 g/dL (3.4-5.0) Albumin/Globulin Ratio 0.8 (1.0-1.7) 0.8 (1.0-1.7) Procalcitonin 0.14 ng/mL (0.00-0.10) Problem List Problems Medical Problems: (1) Post-op pain Status: Acute Assessment/Plan Scrotal hematoma from mental hernia repair appears to be improving Elevated liver enzymes and total bilirubin etiology unknown GI consult requested liver ultrasound From surgical standpoint can be discharged home to follow-up in 2 weeks Justicifation of Admission Dx: Justifications for Admission: Justification of Admission Dx: Yes LUIS GANDARA MD May 09, 2021 12:17
[2021-05-09 15:00] VITALS: BP 129/89
[2021-05-09 19:00] VITALS: BP 129/83
[2021-05-09] MEDS ORDERED: FAMOTIDINE 20 MG TABLET. PO SCH (21:00)
[2021-05-09 23:00] VITALS: BP 111/72
[2021-05-10] MEDS: PIPERACILLIN/TAZOBACTAM 3.375 GM in IV NORMAL SALINE 50ML 50 ML IV SCH ×2 (00:21→06:22)
[2021-05-10 03:00] VITALS: BP 131/87
[2021-05-10 06:14] LABS: ALBUMIN 2.9 g/dL (3.4-5.0); DIRECT BILIRUBIN 1.3 mg/dL (0.0-0.2); TOTAL BILIRUBIN 2.4 mg/dL (0.2-1.0); TOTAL PROTEIN 6.7 g/dL (6.4-8.2)
[2021-05-10 07:00] VITALS: BP 135/92
--- NOTE | 2021-05-10 08:20 | PDOC ---
Infectious Disease Note Subjective: Subjective Pt feels better no fevers last 24 hrs less swelling and pain Does not want to take anymore IV antibiotics as it makes him feel " cold" Able to ambulate without difficulty Vital Signs: Vital Signs Vital Signs Date Time Temp Pulse Resp B/P (MAP) Pulse Ox O2 Delivery O2 Flow Rate FiO2 05/10/21 03:00 98.3 86 18 131/87 (102) 97 Room Air 98.3 Physical Exam: PHYSICAL EXAM GENERAL: Alert, oriented x 3, male sitting upright in chair in no acute distress, cooperative. Nontoxic appearing HEENT: Normocephalic, atraumatic. Anicteric. No thrush. Oral mucosa moist. NECK: Supple, no JVD. LUNGS: Clear bilaterally. No wheezing. HEART: S1, S2. No gallops or murmurs. ABDOMEN: Distended, hypoactive bowel sounds. Tenderness present, diffuse lower quadrants, scrotal swelling present. No overlying redness or warmth noted. Tender on superficial palpation. Unable to feel the testis due to swelling. EXTREMITIES: No edema, no cyanosis. DERMATOLOGIC: Warm, dry, no generalized rash. NEUROLOGIC: Alert, oriented x 3, grossly nonfocal. PSYCHIATRIC: Calm and cooperative. Medications: Inpatient Meds: Medications reviewed. Labs: Lab Laboratory Tests Test 05/10/21 03:35 Iron Level 40 ug/dL (65-175) Total Iron Binding Capacity 221 ug/dL (250-450) Iron Saturation 18 % (15-34) Total Bilirubin 2.4 mg/dL (0.2-1.0) Direct Bilirubin 1.3 mg/dL (0.0-0.2) Aspartate Amino Transf (AST/SGOT) 59 U/L (15-37) Alanine Aminotransferase (ALT/SGPT) 125 U/L (16-63) Alkaline Phosphatase 189 U/L (46-116) Total Protein 6.7 g/dL (6.4-8.2) Albumin 2.9 g/dL (3.4-5.0) Objective: Assessment: 1. Febrile illness, source appears . UA negative, likely hematoma from recent surgery vs infected seroma/abscess.pattern improving 2. Status post robotic-assisted laparoscopic left inguinal hernia repair with mesh 4 days as outpatient.Now with worsening scrotal swelling,testicular pain Hematoma, pelvic wall on CT. 3. History of recurrent inguinal hernia. 4. Bilateral hydroceles on CT. 5. Abnormal LFTs. 6. History of schizophrenia. 7. Hypertension and hyperlipidemia. 8. Mild thrombocytopenia. Plan: Plan of Care 1. Continue DC Zosyn, start Cipro, continue Zyvox 2.scrotal elevation 3. General surgery following. 4. The patient may need transfer to another center for urology evaluation. 5. Follow up labs and cultures. 6. Pain control per primary 8.Continue supportive care. SUMIT ZHU MD May 10, 2021 08:20
--- NOTE | 2021-05-10 09:55 | PDOC ---
Date of Service: DATE: 05/10/21 TIME: 09:53 Subjective: Subjective: Groin hurts. No GI complaints. Objective: Vital Signs: Vital Signs Date Time Temp Pulse Resp B/P (MAP) Pulse Ox O2 Delivery O2 Flow Rate FiO2 05/10/21 07:00 97.6 83 18 135/92 (106) 98 Room Air 97.6 Labs: Laboratory Tests Test 05/10/21 03:35 Iron Level 40 ug/dL Total Iron Binding Capacity 221 ug/dL Iron Saturation 18 % Total Bilirubin 2.4 mg/dL Direct Bilirubin 1.3 mg/dL Aspartate Amino Transf (AST/SGOT) 59 U/L Alanine Aminotransferase (ALT/SGPT) 125 U/L Alkaline Phosphatase 189 U/L Total Protein 6.7 g/dL Albumin 2.9 g/dL BLOOD CULTURE Preliminary NO GROWTH AFTER 3 DAYS BLOOD CULTURE Preliminary NO GROWTH AFTER 2 DAYS PE: GEN: NAD - was resting LUNGS: CTAB HEART: RRR ABD: NABS, S/ND/NT NEURO/PSYCH: A & O 3 A/P: S/p LIH repair w/ seroma/hematoma ACD Elevated LFTs (better) - do not suspect chronic liver issue COVID negative -- LFTs improved - follow. Would continue H2 phillip while on NSAIDs. Justicifation of Admission Dx: Justifications for Admission: Justification of Admission Dx: Yes CAMELIA RAMEY May 10, 2021 09:55
[2021-05-10] MEDS: LOSARTAN POTASSIUM 50 MG TABLET. PO SCH (10:39)
[2021-05-10] MEDS: LACTOBACILLUS RHAMNOSUS GG 1 CAPSULE. PO SCH (10:39)
[2021-05-10] MEDS: LINEZOLID 600 MG TABLET PO SCH (10:39)
[2021-05-10 11:00] VITALS: BP 133/92
--- NOTE | 2021-05-10 11:02 | NUR ---
SW following. Discussed with RN, pt switched to PO abx by ID, Surgery okay with discharge. SW awaiting confirmation from Dr. Miller RE discharge. RN advised no SW needs. SW will continue to follow.
[2021-05-10] MEDS ORDERED: AMOXICILLIN/K CLAV 875/125MG TABLET. PO SCH (12:00)
[2021-05-10] MEDS ORDERED: AMOX1TAB11 PO (12:14)
--- NOTE | 2021-05-10 12:15 | SNU/HH DC ---
DISCHARGE WITH HOME HEALTH DISCHARGE INFORMATION: Final Diagnosis: Problems Medical Problems: (1) Post-op pain Status: Acute Condition on Discharge: Stable CODE STATUS: Code Status: Full HOME HEALTH: Face to Face: I certify this patient is under my care and that I, or a nurse practitioner or physician's assistant athletic trainer working with me, had a face to face encounter that meets the physician face to face encounter requirements with this patient on []. Medical Complications: Other (Recent hernia repair/scrotal edema) Half-Way For: Assess & Educate Safety RN For Eval/Treatment: Yes Physical Therapy For: Evalulation/Treatment Occupational Therapy For: Evaluation/Treatment Home Health Aide For: Self-care SENIOR UX DEVELOPER For: Community Resources Pt Meets Homebound Status: Poor coordination w/ amb. POST DISCHARGE ORDERS: Activity Instructions for Disc: Avoid exertion DIET AFTER DISCHARGE: Cardiac CERTIFICATION STATEMENT: Certification Statement: Certification Statement: Based on the above finding, I certify that this patient is confined to the home and needs intermittent group home care, physical therapy and/or speech therapy, or continues to need occupational therapy.~ This patient is under my care, and I have initiated the establishment of the plan of care.~ This patient will be followed by myself or a community physician who will periodically review the plan of care. Home Meds Active Scripts Amoxicillin/Potassium Clav (AMOX TR-K CLV 875-125 MG TAB) 1 Each Tablet, 1 TAB PO BID for . for 7 Days, #14 TAB Prov:MILI MORALESL K III DO 05/10/21 Oxycodone/Apap 5-325 (PERCOCET 5-325 MG TABLET ) 1 Each Tablet, 1 TAB PO Q6HRS PRN for PAIN MDD 4 Tablet(s) for 5 Days, #20 TAB 0 Refills Prov:LUIS GANDARA MD 05/03/21 Reported Medications Clonidine (CLONIDINE TTS-2 ) 1 Each Patch.tdwk, 1 PATCH TD WEEKLY for HYPERTENSION, PATCH 05/07/21 Losartan Potassium (LOSARTAN POTASSIUM) 100 Mg Tablet, 100 MG PO DAILY for HYPERTENSION, TAB 05/02/21 Docusate Sodium (STOOL SOFTENER) 50 Mg Capsule, 1 CAP PO PRN DAILY PRN for CONSTIPATION, CAP 05/02/21 Naproxen Sodium (NAPROXEN SODIUM) 220 Mg Capsule, 220 MG PO PRN BID PRN for pain control, CAP 05/02/21 Risperidone Microspheres (RISPERDAL CONSTA) 37.5 Mg/2 Ml Disp.syrin, 1 SYR IM UD for treat schizophrenia, #4 ML 3 Refills 02/13/17 SANA MORALES III DO May 10, 2021 12:15
--- NOTE | 2021-05-10 12:23 | PDOC ---
[employer] PROGRESS NOTE Date of Service DOS: DATE: 05/10/21 TIME: 12:13 Chief Complaint Chief Complaint CC: Post Op Abdominal pain testicular swelling seroma hematoma obesity Schizophrenia HTN Hyperlipidemia HX of 2 Robotic assisted laparoscopic left inguinal hernia repair with mesh History of Present Illness History of Present Illness 05/10 Significant scrotal swelling still present as well as pain. Talked with patient about keeping legs and lower body and scrotum more elevated than heart to help with swelling. Pt says abdominal pain has improved, but scrotal pain is still the same as yesterday. HPI: Pain after recent surgery. states his abdomen is been more distended and is having increasing pain.//complaining of increased left testicular swelling since surgery. Patient has had a previous hernia repair in the past. 45-year-old male who had bilateral inguinal hernia repairs several years ago is recurrent left inguinal hernia possible right suspect hematoma secondary extensive dissection, should be self limiting. encouraged elevation. Vitals/I&O Vitals/I&O: Vital Signs Date Time Temp Pulse Resp B/P (MAP) Pulse Ox O2 Delivery O2 Flow Rate FiO2 05/10/21 11:00 98.2 86 18 133/92 (106) 98 Room Air 98.2 I & O 05/09/21 05/09/21 05/10/21 14:59 22:59 06:59 Intake Total 360 ml 300 ml Balance 360 ml 300 ml Physical Exam Physical Exam: GENERAL: Alert, oriented x 3, male sitting upright in chair in no acute distress, cooperative. Nontoxic appearing HEENT: Normocephalic, atraumatic. Anicteric. No thrush. Oral mucosa moist. NECK: Supple, no JVD. LUNGS: Clear bilaterally. No wheezing. HEART: S1, S2. No gallops or murmurs. ABDOMEN: Distended, hypoactive bowel sounds. Tenderness present, diffuse lower quadrants, scrotal swelling present. No overlying redness or warmth noted. Tender on superficial palpation. Unable to feel the testis due to swelling. EXTREMITIES: No edema, no cyanosis. DERMATOLOGIC: Warm, dry, no generalized rash. NEUROLOGIC: Alert, oriented x 3, grossly nonfocal. PSYCHIATRIC: Calm and cooperative. General: Alert, Oriented X3, Cooperative, mild distress Heart: Regular rate, Normal S1, Normal S2, No murmurs Lungs: Clear Abdomen: Other (Scrotal swelling mildly improved less tender) Extremities: No clubbing, No cyanosis Skin: No rashes, Other (scrotal swelling) Labs Labs: Laboratory Tests Test 05/10/21 03:35 Iron Level 40 ug/dL (65-175) Total Iron Binding Capacity 221 ug/dL (250-450) Iron Saturation 18 % (15-34) Total Bilirubin 2.4 mg/dL (0.2-1.0) Direct Bilirubin 1.3 mg/dL (0.0-0.2) Aspartate Amino Transf (AST/SGOT) 59 U/L (15-37) Alanine Aminotransferase (ALT/SGPT) 125 U/L (16-63) Alkaline Phosphatase 189 U/L (46-116) Total Protein 6.7 g/dL (6.4-8.2) Albumin 2.9 g/dL (3.4-5.0) Review of Systems Review of Systems: Denies chest pain. Denies calf pain b/l. Assessment and Plan Assessmemt and Plan Problems Medical Problems: (1) Post-op pain Status: Acute Assessment: CC: Post Op Abdominal pain testicular swelling seroma hematoma obesity Schizophrenia HTN Hyperlipidemia HX of 2 Robotic assisted laparoscopic left inguinal hernia repair with mesh Plan: Hope to D/C tomorrow and will need transportation to home Continue Antibiotics Continue pain management Pt will elevate scrotum and LE above heart at home when on D/C Trend labs. PT/OT Full Code Comment Review of Relevant I have reviewed the following items [place] (where applicable) has been applied. Medications: Current Medications Medications (Trade) Dose Ordered Sig/Toño Route PRN Reason Start Time Stop Time Status Last Admin Dose Admin Famotidine (Pepcid) 20 mg QHS PO 05/09/21 21:00 05/09/21 21:30 Justifications for Admission Other Justification POST OP BLEEDING HERNIA REPAIR SANA MORALES III DO May 10, 2021 12:23
--- NOTE | 2021-05-10 13:07 | DS ---
DATE OF DISCHARGE: 05/10/2021 ADMITTING DIAGNOSES: 1. Recent robotic hernia repair. 2. Seroma. 3. Hematoma. DISCHARGE DIAGNOSES: Resolving seroma, resolving hematoma. CONSULTS: General Surgery, GI, Infectious Disease. PROCEDURES: None. HOSPITAL COURSE: The patient is a pleasant middle-aged male from [facility] who had bilateral inguinal repair several years ago and it had to be repaired again in the recent past. After surgery, he then developed seroma and hematoma. He was admitted. The above consults were obtained. We did wound care. Basically over the past few days, the patient has returned to his baseline. He still has some scrotal swelling noted, which I have assured him will resolve over time. I have encouraged him to elevate that once he gets home. I saw and examined today. We plan to discharge to home. DISPOSITION: Home. ACTIVITY: As tolerated. DIET: Low sodium. DISCHARGE MEDICATIONS: I left prescriptions for Augmentin 875 p.o. b.i.d. and will continue his other home medications including clonidine patches, stool softeners with docusate, losartan 100 a day, Naprosyn 220 b.i.d. p.r.n., oxycodone 5 every 6 hours p.r.n. and Risperdal 37.5 b.i.d. TOTAL TIME: [address]: TIMA/rosalia TID: [id number]
== END 2021-05-10 14:30 | disposition home or self-care (01) | DRG 920 ==
LOC: ER 19:17 → 2 NORTH 23:39 → 4 NORTH 05-08 06:30
PROVIDERS: ADMIT Internal Medicine; ATTEND Internal Medicine
DX: K91.870 Postprocedural hematoma of a digestive system organ or structure following a digestive system procedure (principal); R17 Unspecified jaundice; D69.6 Thrombocytopenia, unspecified; E66.9 Obesity, unspecified; E78.5 Hyperlipidemia, unspecified; F17.210 Nicotine dependence, cigarettes, uncomplicated; F20.9 Schizophrenia, unspecified; I10 Essential (primary) hypertension; K57.90 Diverticulosis of intestine, part unspecified, without perforation or abscess without bleeding; N43.3 Hydrocele, unspecified; S30.22XA Contusion of scrotum and testes, initial encounter; Z20.822 Contact with and (suspected) exposure to COVID-19; Z82.49 Family history of ischemic heart disease and other diseases of the circulatory system; D64.9 Anemia, unspecified; Z68.30 Body mass index [BMI] 30.0-30.9, adult
CPT/HCPCS: 36415; 71045; 74018; 74177; 76705; 80053; 80076; 81001; 82607; 83540; 83550; 83605; 84145; 85025; 86140; 87040; 96361; 96374; G0238; J2543; J3010; J7120; Q9967; U0003; U0005; 97530-GP; 97535-GO; 99285-25; G0378